=== PATIENT | male | born 1960 | race African-American/Black ===

== ENCOUNTER 2020-10-04 13:22 | Observation (INO) ==
[2020-10-04] MEDS ORDERED: ADENOSINE IV SOLN 3 MG/ML 2 ML VIAL IV STA (13:47)
[2020-10-04] MEDS ORDERED: SODIUM CHLORIDE 0.9% 1000ML 1,000 ML IV STA (13:47)
[2020-10-04] MEDS ORDERED: ASPIRIN CHEW 324 MG PO STA (13:47)
[2020-10-04] MEDS ORDERED: METOPROLOL TARTRATE 1 MG/ML VIAL IV ONE (13:51)
[2020-10-04] MEDS ORDERED: METOPROLOL TARTRATE 1 MG/ML VIAL IV STA (13:53)
[2020-10-04 13:58] LABS: Hematocrit (blood only) 48.8 % (42-52); Hemoglobin 16.1 g/dL (14.0-18.0); Mean Corpuscular Hemoglobin 28.7 pg (25-34); Mean Platelet Volume 10.2 fL (7.4-10.4); Platelet Count 217 K/uL (130-400); RDW Coefficient of Variation 14.2 % (11.5-14.5); RDW Standard Deviation 45.4 fL (36.4-46.3); Red Blood Count 5.61 M/uL (4.7-6.1)
[2020-10-04 14:03] LABS: Prothrombin Time 10.4 Seconds (9.0-12.0)
[2020-10-04 14:14] LABS: Albumin Level 3.8 gm/dl (3.4-5.0); BUN Creatinine Ratio 17.5 (10-20); Calcium 9.4 mg/dl (8.5-10.1); Creatinine Clr Calc Pharmacy 95.5 ml/min; Est GFR (African American) 88.2; Est GFR (Non-African American) 76.1; Potassium 3.7 mmol/L (3.5-5.1)
--- NOTE | 2020-10-04 14:14 | XRay Report ---
XR chest 1V portable HISTORY: 60 years-old Male Chest Pain acute atypical chest pain COMPARISON: CT abdomen 06/18/2007 TECHNIQUE: Portable AP view the chest FINDINGS: Cardiac silhouette is mildly enlarged. No pneumothorax, pleural effusion, airspace consolidation or o vert pulmonary edema. Mild left lung base opacities suggestive of atelectasis. Degenerative changes o f the shoulders and spine. IMPRESSION: No acute process. ACT 112: Negative or not required by law. The above report was generated using voice recognition software. It may contain grammatical, syntax o r spelling errors. Electronically signed by: Александр Peters M.D. 10/04/2020 2:12 PM
[2020-10-04 14:20] LABS: Albumin Globulin Ratio 0.8 (0.9-2); Bilirubin,Total 0.9 mg/dl (0.2-1); Globulin 4.5 gm/dl (2.5-4.0); Total Protein 8.3 gm/dl (6.4-8.2); Troponin I 0.368 ng/ml (0-0.045)
[2020-10-04] MEDS ORDERED: hydrALAZINE HCL 20 MG/ML VIAL IV STA (14:26)
[2020-10-04 14:51] LABS: Basophils # (auto) 0.01 K/uL (0-0.2); Basophils % (auto) 0.2 %; Eosinophils # (auto) 0.12 K/uL (0-0.5); Eosinophils % (auto) 2.3 %; Immature Granulocytes # (auto) 0.01 K/uL (0.00-0.02); Immature Granulocytes % (auto) 0.2 %; Lymphocytes # (auto) 2.65 K/uL (1.2-3.4); Monocytes # (auto) 0.39 K/uL (0.11-0.59); Monocytes % (auto) 7.4 %; Neutrophils # (auto) 2.12 K/uL (1.4-6.5); Neutrophils % (auto) 39.9 %
--- NOTE | 2020-10-04 15:09 | History & Physical Report ---
Date of Service October 04, 2020 Assessment & Plan (1) Paroxysmal SVT (supraventricular tachycardia): This is a 60yo M with a PMH of HTN, DM II, BPH and other medical problems listed below who presents with chest discomfort and was found to have paroxysmal SVT and uncontrolled blood pressure. Initial EKG with SVT at 160. Resolved with carotid massage. Associated chest discomfort resolved completely at this time Endorses a few similar episodes in the past 6 months that have resolved spon taneously Denies any history of known arrhythmias Continue to monitor on telemetry (2) Uncontrolled hypertension: BP 171/128 initially Given 5mg IV Lopressor, 10mg IV hydralazine, repeat BP now 162/112 History of elevated BP - patient sees Dr. Leon. Currently taking chlorthalidone 25mg and Losartan 50mg daily Discussed with Dr. Bernal, who recommends addition of 50mg Losartan and 1mg Terazosin now Routine cardiology consult for optimization of home BP meds, hypertensive heart disease (3) Troponin level elevated: Initial troponin level mildly elevated at 0.368 In setting of paroxysmal SVT that resolved spontaneously in ED with complete resolution of chest pain Initial EKG with SVT now resolved. Per chart review, history of symmetrical T- wave inversions in the inferior and lateral precordial leads CXR with no acute process Trend troponin, repeat EKG in AM, fasting lipid panel, TTE (4) Diabetes mellitus, type II: A1c 8.1 in Jul 2020 Hold home agents SSI while in-patient BSG AC HS (5) Hyperlipidemia: Has been hesitant to take statin in the past, per chart review DVT Ppx: SQ heparin Code status: FULL PCP: Raoul Dispo: Observation PCU. Plan to return home once medically stable. Patient seen in collaboration with Dr. Rodriguez. Please see addendum. History of Present Illness Primary Care Provider: Jordi Silveira MD This is a 60yo M with a PMH of HTN, DM II, BPH and other medical problems listed below who presents with chest discomfort. Was at work and had burning discomfort earlier and could not take in a full breath for 10 minutes. Rated severity as 7/10. Associated with diaphoresis. Left work and came to ED for further evaluation. Chest discomfort resolved completely after carotid massage. Had 2 similar episodes of heart palpitations over the past 6 months. During those episodes, symptoms lasted for 20-30 minutes and then resolved spontaneously. Non-exertional. Denies any tobacco use. No known history of CAD in family but both parents with HTN. Follows with Dr. Leon of [facility] cardi[facility]. Has been taking chlorthalidone and lopressor every morning. No fever or chills, lightheadedness, headache, palpitations, SOB, wheezing, nausea, vomiting, abdominal pain, dysuria, diarrhea or constipation. Has TTE from 2016 with preserved EF of 60%, preserved EF, LV wall thickness is severely increased (concentric) and proximal ascending thoracic aorta is borderline enlarged. Allergies Allergy/AdvReac Type Severity Reaction Status Date / Time Sulfa (Sulfonamide Allergy Unknown Unknown Verified 10/04/20 17:23 Antibiotics) metoprolol AdvReac erectile Verified 10/04/20 16:28 dysfunction nifedipine AdvReac airway Verified 10/04/20 16:27 edema Home Medications Medication Instructions Recorded Confirmed Type allopurinol 100 mg PO DAILY PRN 10/04/20 10/04/20 History aspirin [Aspirin Low Dose] 81 mg PO DAILY 10/04/20 10/04/20 History chlorthalidone 25 mg PO DAILY 10/04/20 10/04/20 History glyburide 5 mg PO BID 10/04/20 10/04/20 History losartan 50 mg PO DAILY 10/04/20 10/04/20 History Past Med/Surg History Medical History (Updated 10/04/20 @ 16:48 by Bel Bailey PA-C) Diabetes mellitus, type II History of blood in urine HTN (hypertension) Hyperlipidemia Obesity Surgical History History of eye removal Family History Father Hypertension Mother Hypertension Social History (Updated 10/04/20 @ 16:36 by Bel Bailey PA-C) Smoking Status: Never smoker Hx Alcohol Use: Yes Alcohol Intake Frequency: Monthly or Less Hx Substance Use: No Preferred Language: Mongolian marital status: Feels Safe at Home: Yes Review of Systems Review of Systems: At least ten systems reviewed and negative except as noted in the HPI. Physical Exam Physical Exam: Please see Dr. Rodriguez's addendum for physical exam. Results & Data Results & Data ([facility]) Vital Signs (Past 12 Hours) Vital Signs Temp Pulse Pulse Resp BP BP Pulse Ox 10/04/20 14:26 86 18 181/135 H 97 10/04/20 13:25 37.1 C 156 H 24 171/128 H 98 Laboratory Results Short CBC 10/04/20 Range/Units 13:42 WBC 5.30 (4.8-10.8) K/uL Hgb 16.1 (14.0-18.0) g/dL Hct 48.8 (42-52) % Plt Count 217 (130-400) K/uL BMP 10/04/20 13:42 Sodium 140 Potassium 3.7 Chloride 107 Carbon Dioxide 28 BUN 19 H Creatinine 1.07 Glucose 139 H Calcium 9.4 Cardiac Enzymes 10/04/20 Range/Units 13:42 Troponin I 0.368 H* (0-0.045) ng/ml Liver Function 10/04/20 Range/Units 13:42 Total Bilirubin 0.9 (0.2-1) mg/dl AST 76 H (15-37) U/L ALT 115 H (12-78) U/L Alkaline Phosphatase 75 (45-117) U/L Albumin 3.8 (3.4-5.0) gm/dl Diagnostic Findings Chest X-Ray 10/04/20 13:47 XR chest 1V portable HISTORY: 60 years-old Male Chest Pain acute atypical chest pain COMPARISON: CT abdomen 06/18/2007 TECHNIQUE: Portable AP view the chest FINDINGS: Cardiac silhouette is mildly enlarged. No pneumothorax, pleural effusion, airspace consolidation or overt pulmonary edema. Mild left lung base opacities suggestive of atelectasis. Degenerative changes of the shoulders and spine. IMPRESSION: No acute process. ACT 112: Negative or not required by law. The above report was generated using voice recognition software. It may contain grammatical, syntax or spelling errors. Electronically signed by: Александр Peters M.D. 10/04/2020 2:12 PM Supervising Physician Co-Signing Physician Notes Patient is a 60-year-old male with history of hypertension, diabetes mellitus, BPH and other medical problems presents with history of chest discomfort. He reports associated shortness of breath, diaphoresis and presents to ED for further evaluation. He had similar episodes in the past which spontaneously resolved as per patient. He follows with [facility] cardiology as outpatient. He admits to taking his medications for high blood pressure regularly. Please review HPI for complete reflux of presentation. He was found to have supraventricular tachycardia while in ED which resolved with carotid massage. Physical Exam: Vitals signs as noted above General Appearance:Obese, no apparent distress Head: normocephalic, Atraumatic Eyes: normal inspection, EOMI, Left eye--Artificial eye Neck: supple, Trachea midline Respiratory/Chest: Normal breath sounds, CTA Cardiovascular: S1, S2, No murmur Abdomen/GI:Soft, Non tender, Bowel sounds present Extremities/Musculoskeletal:normal inspection, no edema Neurologic/Psych:AAOX3, grossly no focal neurological deficits Skin: normal color, warm Supraventricular tachycardia Hypertensive urgency Minimal troponin elevation likely demand ischemia secondary to above We will increase losartan to 100 mg daily. Will add Terazosin as recommended by cardiology. Cardiology will be consulted. Will obtain resting echo check TSH. Monitor on telemetry Trend cardiac enzymes and repeat EKG in the morning. Continue chlorthalidone 25 mg daily. I personally reviewed the record. Patient is interviewed and examined at bedside. Patient's care is coordinated with Bel Bailey PA-C. Please refer to the documentation above for details of patient's presentation and for discussion of other issues.
[2020-10-04] MEDS ORDERED: LOSARTAN POTASSIUM 50 MG TAB PO STA (16:24)
[2020-10-04 16:52] LABS: Influenza A virus by PCR Negative (Neg); Influenza B virus by PCR Negative (Neg); RSV by PCR Negative (Neg); SARS CoV2 RNA(COVID-19) InHosp NEGATIVE (Negative)
[2020-10-04] MEDS ORDERED: TERAZOSIN HCL 1 MG CAP PO STA (17:22)
[2020-10-04] MEDS ORDERED: CARBOHYDRATES FOR HYPOGLYCEMIA PO PRN (20:04)
[2020-10-04] MEDS ORDERED: POLYETHYLENE (MIRALAX) 17 GM PACK PO PRN (20:04)
[2020-10-04] MEDS ORDERED: GLUCOSE 10 TABS/TUBE PO PRN (20:04)
[2020-10-04] MEDS ORDERED: GLUCOSE 40% GEL 15 GM TUBE PO PRN (20:04)
[2020-10-04] MEDS ORDERED: DEXTROSE 50% 50 ML SYRINGE IV PRN (20:04)
[2020-10-04] MEDS ORDERED: ONDANSETRON INJ 2 MG/ML 2 ML VIAL IV PRN (20:04)
[2020-10-04] MEDS ORDERED: LOSARTAN POTASSIUM 50 MG TAB PO SCH (20:04)
[2020-10-04] MEDS ORDERED: GLUCAGON FOR INJ 1 MG VIAL SQ PRN (20:04)
[2020-10-04 20:59] LABS: Thyroid Stimulating Hormone 1.54 uIu/ml (0.300-4.500); Troponin I 0.729 ng/ml (0-0.045)
[2020-10-04] MEDS: INSULIN ASPART 100 UNITS/ML 3 ML PEN SC SCH (21:10)
[2020-10-04] MEDS: ACETAMINOPHEN 325 MG TAB PO PRN (21:11)
[2020-10-04] MEDS: HEPARIN SOD 5,000 UNIT/0.5 ML VIAL SQ SCH (21:14)
--- NOTE | 2020-10-04 21:56 | Emergency Department Note ---
History of Present Illness General Chief complaint: Chest Pain Stated complaint: CHEST PAIN Time Seen by Provider: 10/04/20 13:45 Source: patient and RN notes reviewed Mode of arrival: ambulatory Limitations: no limitations History of Present Illness Provider complaint: Chest pain Maximum Pain Intensity: 6 This patient is a 60-year-old male who presents to the emergency department with complaints of substernal chest pressure that radiates to the left side. He does complain of some discomfort up into the neck. He notes this started around lunchtime today. He has had this happen on occasion previously but it does not lasted this long. He notes a history of diabetes and hypertension. Patient denies any history of heart problems, previous stress testing or catheterization. He denies any history of smoking. Patient denies any recent Covid exposures. Home Medications Medication Instructions Recorded Confirmed Type allopurinol 100 mg PO DAILY PRN 10/04/20 10/04/20 History aspirin [Aspirin Low Dose] 81 mg PO DAILY 10/04/20 10/04/20 History chlorthalidone 25 mg PO DAILY 10/04/20 10/04/20 History glyburide 5 mg PO BID 10/04/20 10/04/20 History losartan 50 mg PO DAILY 10/04/20 10/04/20 History Allergies Allergy/AdvReac Type Severity Reaction Status Date / Time Sulfa (Sulfonamide Allergy Unknown Unknown Verified 10/04/20 17:23 Antibiotics) metoprolol AdvReac erectile Verified 10/04/20 16:28 dysfunction nifedipine AdvReac airway Verified 10/04/20 16:27 edema Past Med/Surg History Medical History Diabetes mellitus, type II History of blood in urine HTN (hypertension) Hyperlipidemia Obesity Surgical History History of eye removal Family History Father Hypertension Mother Hypertension Social History Smoking Status: Never smoker Second Hand Exposure: No; Do You Dip or Chew Tobacco: No; Hx Alcohol Use: No Hx Substance Use: No Preferred Language: Bulgarian Communication Ability: Effective 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 and A total of 10 systems reviewed and were otherwise negative Physical Exam Vital Signs Vital Signs - 24 hr 10/04/20 13:25 10/04/20 13:47 10/04/20 13:50 Temperature 37.1 C Temperature Source Oral Pulse Rate 156 H 92 H 103 H Pulse Rate [Right Finger] Pulse Rate from SpO2 Sensor Pulse Rhythm Regular Regular Pulse Rhythm [Right Finger] Pulse Strength Normal Pulse Strength [Right Finger] Respiratory Rate 24 20 27 H Respiratory Effort / Characteristics Non-Labored Spontaneous Short of Breath Respiratory Depth Normal Shallow Respiratory Pattern Regular Blood Pressure 171/128 H Blood Pressure [Right Arm] Blood Pressure Mean 142 Blood Pressure Mean [Right Arm] Blood Pressure Position Sitting Blood Pressure Position [Right Arm] Pulse Oximetry 98 97 Oxygen Delivery Method Room Air Room Air Sepsis Recent Fever Within 48 Hours No Sepsis New/Unexplained Change in Mental Status No Sepsis Action Taken by Nursing No Action Required 10/04/20 13:56 10/04/20 14:00 10/04/20 14:10 Temperature Temperature Source Pulse Rate 95 H 85 69 Pulse Rate [Right Finger] Pulse Rate from SpO2 Sensor 83 Pulse Rhythm Pulse Rhythm [Right Finger] Pulse Strength Pulse Strength [Right Finger] Respiratory Rate Respiratory Effort / Characteristics Respiratory Depth Respiratory Pattern Blood Pressure 193/124 H Blood Pressure [Right Arm] Blood Pressure Mean 147 Blood Pressure Mean [Right Arm] Blood Pressure Position Blood Pressure Position [Right Arm] Pulse Oximetry 96 Oxygen Delivery Method Sepsis Recent Fever Within 48 Hours Sepsis New/Unexplained Change in Mental Status Sepsis Action Taken by Nursing 10/04/20 14:20 10/04/20 14:24 10/04/20 14:26 Temperature Temperature Source Pulse Rate 93 H 87 Pulse Rate [Right Finger] 86 Pulse Rate from SpO2 Sensor 87 Pulse Rhythm Pulse Rhythm [Right Finger] Regular Pulse Strength Pulse Strength [Right Finger] Normal Respiratory Rate 14 17 18 Respiratory Effort / Characteristics Non-Labored Spontaneous Respiratory Depth Normal Respiratory Pattern Regular Blood Pressure 181/135 H Blood Pressure [Right Arm] 181/135 H Blood Pressure Mean 150 Blood Pressure Mean [Right Arm] 150 Blood Pressure Position Blood Pressure Position [Right Arm] Lying Pulse Oximetry 98 97 Oxygen Delivery Method Room Air Sepsis Recent Fever Within 48 Hours Sepsis New/Unexplained Change in Mental Status Sepsis Action Taken by Nursing 10/04/20 14:30 10/04/20 14:31 10/04/20 14:40 Temperature Temperature Source Pulse Rate 84 83 83 Pulse Rate [Right Finger] Pulse Rate from SpO2 Sensor 83 82 83 Pulse Rhythm Pulse Rhythm [Right Finger] Pulse Strength Pulse Strength [Right Finger] Respiratory Rate 20 15 20 Respiratory Effort / Characteristics Respiratory Depth Respiratory Pattern Blood Pressure 171/117 H Blood Pressure [Right Arm] Blood Pressure Mean 135 Blood Pressure Mean [Right Arm] Blood Pressure Position Blood Pressure Position [Right Arm] Pulse Oximetry 97 97 97 Oxygen Delivery Method Sepsis Recent Fever Within 48 Hours Sepsis New/Unexplained Change in Mental Status Sepsis Action Taken by Nursing 10/04/20 14:45 10/04/20 14:59 10/04/20 15:00 Temperature Temperature Source Pulse Rate 91 H Pulse Rate [Right Finger] Pulse Rate from SpO2 Sensor Pulse Rhythm Pulse Rhythm [Right Finger] Pulse Strength Pulse Strength [Right Finger] Respiratory Rate 23 Respiratory Effort / Characteristics Respiratory Depth Respiratory Pattern Blood Pressure 187/130 H 183/130 H 185/126 H Blood Pressure [Right Arm] Blood Pressure Mean 149 147 145 Blood Pressure Mean [Right Arm] Blood Pressure Position Blood Pressure Position [Right Arm] Pulse Oximetry Oxygen Delivery Method Sepsis Recent Fever Within 48 Hours Sepsis New/Unexplained Change in Mental Status Sepsis Action Taken by Nursing 10/04/20 15:12 Temperature Temperature Source Pulse Rate Pulse Rate [Right Finger] Pulse Rate from SpO2 Sensor Pulse Rhythm Pulse Rhythm [Right Finger] Pulse Strength Pulse Strength [Right Finger] Respiratory Rate Respiratory Effort / Characteristics Respiratory Depth Respiratory Pattern Blood Pressure 190/133 H Blood Pressure [Right Arm] Blood Pressure Mean 152 Blood Pressure Mean [Right Arm] Blood Pressure Position Blood Pressure Position [Right Arm] Pulse Oximetry Oxygen Delivery Method Sepsis Recent Fever Within 48 Hours Sepsis New/Unexplained Change in Mental Status Sepsis Action Taken by Nursing Vital signs reviewed. General: Well-appearing 60 yo male, in no significant distress. HEENT: No scleral icterus, PERRLA, neck supple. Atraumatic. Cardiovascular: Tachycardic, regular, no extra sounds Pulmonary: Clear to auscultation bilaterally, normal work of breathing. Abdomen: Soft, obese, nontender, nondistended, positive bowel sounds. Musculoskeletal: Atraumatic, no peripheral edema. Neurologic: Patient awake alert and oriented x 3 Skin: Warm, dry, no rash Course Administered Medications Acetaminophen (Acetaminophen 325 Mg Tab) 650 mg PO Q4H PRN PRN Reason: Pain or Fever Stop: 11/03/20 20:03 Last Admin: 10/04/20 21:11 Dose: 650 mg Documented by: [id number] Heparin Sodium (Porcine) (Heparin Sod 5,000 Unit/0.5 Ml Vial) 5,000 units SQ Q8 ADRIANA Stop: 11/03/20 21:59 Last Admin: 10/04/20 21:14 Dose: 5,000 units Documented by: [id number] Discontinued Medications Adenosine (Adenosine Iv Soln 3 Mg/Ml 2 Ml Vial) 6 mg IV NOW STA Stop: 10/04/20 13:48 Last Admin: 10/04/20 19:20 Dose: Not Given Documented by: [id number] Aspirin (Aspirin Chew 324 Mg) 324 mg PO NOW STA Stop: 10/04/20 13:48 Last Admin: 10/04/20 15:22 Dose: 324 mg Documented by: [id number] Hydralazine HCl (Hydralazine Hcl 20 Mg/Ml Vial) 10 mg IV NOW STA Stop: 10/04/20 14:27 Last Admin: 10/04/20 15:22 Dose: 10 mg Documented by: [id number] Sodium Chloride (Nss 1000ml) 1,000 mls @ 999 mls/hr IV .Q1H1M STA Stop: 10/04/20 14:47 Last Infusion: 10/04/20 17:59 Dose: 0 mls/hr Documented by: [id number] Admin: 10/04/20 16:00 Dose: 999 mls/hr Documented by: [id number] Losartan Potassium (Losartan Potassium 50 Mg Tab) 50 mg PO ONE STA Stop: 10/04/20 16:25 Last Admin: 10/04/20 16:54 Dose: 50 mg Documented by: [id number] Metoprolol Tartrate (Metoprolol Tartrate 1 Mg/Ml Vial) Confirm Administered Dose 5 mg IV .STK-MED ONE Stop: 10/04/20 13:52 Last Admin: 10/04/20 14:14 Dose: 5 mg Documented by: [id number] Metoprolol Tartrate (Metoprolol Tartrate 1 Mg/Ml Vial) 5 mg IV NOW STA Stop: 10/04/20 13:54 Last Admin: 10/04/20 15:16 Dose: Not Given Documented by: [id number] Terazosin HCl (Terazosin Hcl 1 Mg Cap) 1 mg PO NOW STA Stop: 10/04/20 17:23 Last Admin: 10/04/20 17:58 Dose: 1 mg Documented by: [id number] Critical Care Time Critical Care Time: Yes Total Critical Care Time: 35 I have personally spent greater than 35 minutes of critical care time in the direct management of this patient. This includes bedside care, interpretation of diagnostic studies, and testing, discussion with consultants, patient, and family members, and other required patient management activities. This 35 minutes is in excess of all separately billable procedures. Medical Decision Making Differential Diagnosis Cardiac ischemia, aortic dissection, pulmonary embolism, pneumothorax, pneumonia, pericarditis, myocarditis, esophageal rupture, GERD, cholecystitis, pancreatitis, musculoskeletal, as well as other pathologies. Medical Records Attestation: I reviewed the patient's medical records. Home Medications Current Medication List: was personally reviewed by me Laboratory Data Attestation: I reviewed the patient's lab results. Result diagrams: 10/04/20 13:42 10/04/20 13:42 Lab Results 10/04/20 10/04/20 10/04/20 Range/Units 13:42 13:42 13:42 WBC 5.30 (4.8-10.8) K/uL RBC 5.61 (4.7-6.1) M/uL Hgb 16.1 (14.0-18.0) g/dL Hct 48.8 (42-52) % MCV 87.0 (80-100) fL MCH 28.7 (25-34) pg MCHC 33.0 (32-36) g/dL RDW Std Deviation 45.4 (36.4-46.3) fL RDW Coeff of Ricky 14.2 (11.5-14.5) % Plt Count 217 (130-400) K/uL MPV 10.2 (7.4-10.4) fL Immature Gran % (Auto) 0.2 % Neut % (Auto) 39.9 % Lymph % (Auto) 50.0 % [place] % (Auto) 7.4 % Eos % (Auto) 2.3 % Baso % (Auto) 0.2 % Neut # (Auto) 2.12 (1.4-6.5) K/uL Lymph # (Auto) 2.65 (1.2-3.4) K/uL [place] # (Auto) 0.39 (0.11-0.59) K/uL Eos # (Auto) 0.12 (0-0.5) K/uL Baso # (Auto) 0.01 (0-0.2) K/uL Immature Gran # (Auto) 0.01 (0.00-0.02) K/uL PT 10.4 (9.0-12.0) Seconds INR 1.0 (0.9-1.1) Sodium 140 (136-145) mmol/L Potassium 3.7 (3.5-5.1) mmol/L Chloride 107 (98-107) mmol/L Carbon Dioxide 28 (21-32) mmol/L Anion Gap 5.0 (3-11) BUN 19 H (7-18) mg/dl Creatinine 1.07 (0.6-1.4) mg/dl Est Cr Clr Drug Dosing 95.5 ml/min Est GFR ( Amer) 88.2 Est GFR (Non-Af Amer) 76.1 BUN/Creatinine Ratio 17.5 (10-20) Glucose 139 H (70-99) mg/dl Calcium 9.4 (8.5-10.1) mg/dl Total Bilirubin 0.9 (0.2-1) mg/dl AST 76 H (15-37) U/L ALT 115 H (12-78) U/L Alkaline Phosphatase 75 (45-117) U/L Troponin I 0.368 H* (0-0.045) ng/ml Total Protein 8.3 H (6.4-8.2) gm/dl Albumin 3.8 (3.4-5.0) gm/dl Globulin 4.5 H (2.5-4.0) gm/dl Albumin/Globulin Ratio 0.8 L (0.9-2) Lipase 152 (73-393) U/L Specimen Hemolysis Imaging Data Radiologist's Impression: Chest X-Ray 10/04/20 13:47 XR chest 1V portable HISTORY: 60 years-old Male Chest Pain acute atypical chest pain COMPARISON: CT abdomen 06/18/2007 TECHNIQUE: Portable AP view the chest FINDINGS: Cardiac silhouette is mildly enlarged. No pneumothorax, pleural effusion, airspace consolidation or overt pulmonary edema. Mild left lung base opacities suggestive of atelectasis. Degenerative changes of the shoulders and spine. IMPRESSION: No acute process. ACT 112: Negative or not required by law. The above report was generated using voice recognition software. It may contain grammatical, syntax or spelling errors. Electronically signed by: Александр Peters M.D. 10/04/2020 2:12 PM ECG Data Attestation: I personally reviewed and interpreted this ECG as follows: Indication: + chest pain Rate (beats per minute): 157 Rhythm: + SVT ECG Intervals/blocks: + Prolonged QT ECG [place]: + Normal ECG ST segments: + Nonspecific ST abnormalities and + repolarization abnormalities ECG Findings: + Q waves (Anterior); no PACs and no PVCs Additional Comments: EKG#2 reveals a sinus rhythm with a first-degree AV block at 85 bpm. Repolarization abnormality/T wave inversions noted in the lateral leads. Q waves noted in the anterior leads. When compared previous on the same day, sinus rhythm has replaced SVT Blood Pressure Blood Pressure Findings: Elevated blood pressure Blood Pressure Disposition: further management by hospitalist MDM Narrative This patient was evaluated and appeared to be in some discomfort. IV access was obtained and laboratory work was drawn. An order for cardiac monitoring was placed and the patient is noted to be in an SVT. Nursing staff was asked to obt ain IV adenosine and carotid massage was performed at the bedside by myself. SVT broke to a sinus rhythm with a first-degree AV block. Patient was given aspirin 324 mg p.o. and 5 mg of IV metoprolol to keep his rhythm stable and to help treat his markedly elevated blood pressure. Patient's laboratory work reveals a mildly elevated troponin of 0.368. Patient did require dose of IV hydralazine 10 mg for continued hypertension. This is likely a demand mediated process given the patient's recent SVT however given his chest pain, EKG changes, uncontrolled hypertension and elevated troponin, the hospitalist service was contacted for further management. The patient was made aware of the findings and plan and agrees. Impression & Plan Supraventricular tachycardia, Elevated troponin, Chest pain radiating to arm Discharge Plan Visit Data Chief Complaint: Chest Pain Stated Complaint: CHEST PAIN ED Provider: Camelia Royal Discharge Problem: Supraventricular tachycardia, Elevated troponin, Chest pain radiating to arm Patient Disposition: Admitted As Inpatient Discharge Instructions Interventions: ED Discharge Assessment Last Done: 10/04/20 19:36
[2020-10-05 02:24] LABS: Hematocrit (blood only) 44.9 % (42-52); Mean Corpuscular Hgb Conc 33.4 g/dL (32-36); Mean Corpuscular Volume 86.7 fL (80-100); Platelet Count 192 K/uL (130-400); RDW Standard Deviation 44.6 fL (36.4-46.3); Red Blood Count 5.18 M/uL (4.7-6.1); White Blood Count 7.29 K/uL (4.8-10.8)
[2020-10-05 02:42] LABS: BUN Creatinine Ratio 17.6 (10-20); Calcium 8.4 mg/dl (8.5-10.1); Creatinine Clr Calc Pharmacy 80.4 ml/min; Est GFR (African American) 72.4; Est GFR (Non-African American) 62.5; Magnesium 2.3 mg/dl (1.8-2.4); Potassium 3.3 mmol/L (3.5-5.1)
[2020-10-05] MEDS: HEPARIN SOD 5,000 UNIT/0.5 ML VIAL SQ SCH ×3 (05:23→21:19)
[2020-10-05] MEDS ORDERED: POTASSIUM CHLORIDE CRTAB 20 MEQ TABCR PO STA (06:30)
--- NOTE | 2020-10-05 06:59 | Electrocardiogram Report ---
Test Reason : Blood Pressure : / mmHG Vent. Rate : 157 BPM Atrial Rate : 157 BPM P-R Int : 114 ms QRS Dur : 090 ms QT Int : 302 ms P-R-T Axes : 080 074 252 degrees QTc Int : 488 ms Supraventricular tachycardia Abnormal ECG No previous ECGs available Confirmed by Travis Manuel ([id number]) on 10/05/2020 6:58:43 AM Referred By: REFERRED SELF Confirmed By:Travis Manuel
--- NOTE | 2020-10-05 07:03 | Electrocardiogram Report ---
Test Reason : Blood Pressure : / mmHG Vent. Rate : 085 BPM Atrial Rate : 085 BPM P-R Int : 226 ms QRS Dur : 092 ms QT Int : 388 ms P-R-T Axes : 062 044 197 degrees QTc Int : 461 ms Sinus rhythm with 1st degree A-V block Possible Left atrial enlargement Septal infarct , age undetermined T wave abnormality, consider inferolateral ischemia Abnormal ECG When compared with ECG of 04-OCT-2020 13:25, Sinus rhythm has replaced Supraventricular tachycardia Vent. rate has decreased BY 72 BPM Septal infarct is now Present T wave inversion less evident in Inferior leads Confirmed by Travis Manuel ([id number]) on 10/05/2020 7:03:31 AM Referred By: REFERRED SELF Confirmed By:Travis Manuel
[2020-10-05] MEDS: LOSARTAN POTASSIUM 50 MG TAB PO SCH (07:54)
[2020-10-05] MEDS: CHLORTHALIDONE 25 MG TAB PO SCH (07:55)
[2020-10-05] MEDS: ASPIRIN 81 MG ECTAB PO SCH (07:55)
[2020-10-05] MEDS: INSULIN ASPART 100 UNITS/ML 3 ML PEN SC SCH ×4 (07:56→21:20)
--- NOTE | 2020-10-05 08:33 | Hospitalist Progress Note ---
Date of Service October 05, 2020 Assessment & Plan (1) Paroxysmal SVT (supraventricular tachycardia): This is a 60yo M with a PMH of HTN, DM II, BPH and other medical problems listed below who presents with chest discomfort and was found to have paroxysmal SVT and uncontrolled blood pressure. Initial EKG with SVT at 160. Resolved with carotid massage. Associated chest discomfort resolved completely at this time EKG suspicious for Ischemia, repeat trops +Elevated trops Endorses a few similar episodes in the past 6 months that have resolved spontaneously Denies any history of known arrhythmias Continue to monitor on telemetry (2) Uncontrolled hypertension: BP 171/128 initially Given 5mg IV Lopressor, 10mg IV hydralazine, repeat BP now 162/112 History of elevated BP - patient sees Dr. Leon. Currently taking chlorthalidone 25mg and Losartan 50mg daily Discussed with Dr. Bernal, who recommends addition of 50mg Losartan and 1mg Terazosin now Routine cardiology consult for optimization of home BP meds, hypertensive heart disease (3) Troponin level elevated: Initial troponin level mildly elevated at 0.368 and higher today In setting of paroxysmal SVT that resolved spontaneously in ED with complete resolution of chest pain Initial EKG with SVT now resolved. Per chart review, history of symmetrical T- wave inversions in the inferior and lateral precordial leads CXR with no acute process Trend troponin, repeat EKG in AM, fasting lipid panel, TTE (4) Diabetes mellitus, type II: A1c 8.1 in Jul 2020 Hold home agents SSI while in-patient BSG AC HS (5) Hyperlipidemia: Has been hesitant to take statin in the past, per chart review DVT Ppx: SQ heparin Code status: FULL PCP: Raoul Dispo: Await cards input ROS-No Headache, No Visual Changes, No Nausea, No Vomiting, No Fever, No Chills, No Neck Pain or Stiffness, No Chest Pain, No Palpitations, No SOB, No DYSON, No Cough, No Sputum, No Wheezing, No Abdominal Pain, No Diarrhea, No Hematemesis, No Hemoptysis, No Unexpected Weight Loss, No Flank pain, No Melena, No Hematochezia, No Frequency, No Urgency, No Burning, No Hematuria, No Rashes, No Diaphoresis. Appetite is Normal Physical Exam Gen-AAO x 3, NAD, Afebrile, obese Head-NCAT, EOMI, PERRLA, Anicteric Sclera, No Posterior Pharyngeal Erythema Neck-Supple, No JVD, No Thyromegaly, No Masses, No LAD, No Bruits Lungs-Clear to Auscultation Bilaterally, No Rales, No Rhonchi, No Wheezing, No Crepitus Chest-No S4, +S1, +S2, No S3, No Murmurs, No Rubs, No Gallops, No Ectopy Abdomen-Soft, Bowel Sounds Present, Non Tender, Non Distended, No Hepatomegaly, No Splenomegaly, No Palpable Masses, No Rebound, No Rigidity, No Guarding Musculoskeletal-Full Range of Motion Bilaterally, No CVAT Extremities-No Cyanosis, No Clubbing, No Edema Nuero-Cranial Nerves II-XII grossly intact, Motor WNL, DTRs WNL, Strength WNL, Non Focal Psych-Normal Mood Admission and Anticipated Discharge Date Admission Date: October 04, 2020 Results & Data Results & Data ([facility]) Vital Signs (Past 12 Hours) Vital Signs Temp Pulse Pulse Resp BP Pulse Ox 10/05/20 07:36 36.3 C L 86 20 160/89 H 96 10/05/20 07:35 86 10/05/20 03:29 36.6 C 85 17 134/81 97 10/04/20 23:38 36.9 C 100 H 16 121/67 96 10/04/20 22:20 106 H
[2020-10-05] MEDS ORDERED: LOSARTAN POTASSIUM 50 MG TAB PO SCH ×2 (09:00)
--- NOTE | 2020-10-05 09:01 | Cardiology Consultation ---
Date of Consultation October 05, 2020 Assessment & Plan (1) Paroxysmal SVT (supraventricular tachycardia): SVT noted on EKG during emergency room visit- responded well and corrected with carotid massage. Has not had any further episodes to SVT since admission. Metoprolol in the past has caused erectile dysfunction and he developes air way edema on nifedipine. Will hold off on starting BB at this time. Patient is to follow up with cardiology as an out patient in about 2 weeks following dis charge. Patient has not been worked up for sleep apea. Given his history of uncontrolled hypertension and new onset PSVT will order a noctrual pulse ox study for this evening. Present on Admission?: Yes (2) Troponin level elevated: Likely due to increased cardiac demand in the setting on prolonged SVT. For completeness sake will have patient follow up and preform a stress test as an outpatient given the lack of symptoms at this time. Present on Admission?: Yes (3) Uncontrolled hypertension: Patient has a long standing history of difficult to control HTN dating back to 2000. At this time will add Sprionalactone given continued hypertension and low potassium of 3.3. Repeat BMP to be monitored by hospitalist in the AM . Can consider Proscar as an outpatient considering his history of BPH. Present on Admission?: Yes (4) Diabetes mellitus, type II: Will defer to hospitalist for management. Present on Admission?: Yes Supervising Physician Co-Signing Physician Notes Patient seen and examined with Vianney MURO. Agree with findings and assessment as above. Patient presented with complaints of chest pain and found to be in SVT with uncontrolled hypertension. SVT broke with carotid massage in the ER. No recurrences overnight. Chest discomfort resolved with mandaen of sinus rhythm as well. Believe troponin elevation is due to uncontrolled hypertension and SVT. Asymptomatic from cardiac standpoint this time so will defer stress testing to outpatient. We will make above medication changes for further blood pressure control. 2D echocardiogram does reveal severe concentric LVH and close cardiac follow-up for blood pressure control will be necessary. Continue to monitor overnight tonight. We will obtain nocturnal pulse ox as well. High likelihood of obstructive sleep apnea and will need sleep medicine follow-up upon discharge. History of Present Illness Reason for Consultation: Chest Pain, SVT, Hypertension [facility] Attending Physician: Abdulkadir Jordan DO History of Present Illness 60 year old male who presented to the ED with complaints of Chest pain. Found to be in SVT with uncontrolled HTN. Carotid massage resolved SVT and patient returned to SR. Chest discomfort also resolved at that time. Troponins were mildly elevated (0.0368, 0.729, 0.966, 0.991 today at 0840) . HTN was initally 171/128- 5mg of Lopressor was given along with 10 mg of hydralazine, BP lowered to 162/112. Patient follows with Dr. Leon outpatient and was already on 25 mg of chlorthalidone and 50 mg of Losartan. Last evening Terazosin 1mg was added and losartan was increased to 100 mg daily. Today the patient was laying supine in bed at time of encounter. No acute distress noted. States that since his heart has returned to SR he has not had any further episodes of chest discomfort. 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 Does not believe that he is staying well hydrated throughout the day. Notes that BP has been extremely difficult to control since he came over some [facility] [place], [place] in 2000. BP today prior to medications 160/89. Potassium low at 3.3. Patient is asymptomatic. Tele monitor reviewed: patient has been SR in the 80-90s. No chest pain, shortness of breath, palpitations, dizziness, syncope or near syncope. No orthopnea, PND, or increased lower extremity edema. No fever, chills, cough, hematochezia, melena, or hemoptysis Past medical history: Hypertension Hypertensive heart disease DM II BPH Allergies Allergy/AdvReac Type Severity Reaction Status Date / Time Sulfa (Sulfonamide Allergy Unknown Unknown Verified 10/04/20 17:23 Antibiotics) metoprolol AdvReac erectile Verified 10/04/20 16:28 dysfunction nifedipine AdvReac airway Verified 10/04/20 16:27 edema Home Medications Medication Instructions Recorded Confirmed Type allopurinol 100 mg PO DAILY PRN 10/04/20 10/04/20 History aspirin [Aspirin Low Dose] 81 mg PO DAILY 10/04/20 10/04/20 History chlorthalidone 25 mg PO DAILY 10/04/20 10/04/20 History glyburide 5 mg PO BID 10/04/20 10/04/20 History losartan 50 mg PO DAILY 10/04/20 10/04/20 History Patient History Medical History Diabetes mellitus, type II History of blood in urine HTN (hypertension) Hyperlipidemia Obesity Surgical History History of eye removal Family History Father Hypertension Mother Hypertension Social History Smoking Status: Never smoker Second Hand Exposure: No; Do You Dip or Chew Tobacco: No; Hx Alcohol Use: No Hx Substance Use: No Preferred Language: Telugu Communication Ability: Effective Account Manager Required: No Beliefs That Will Affect Care: None marital status: Current Living Situation: Spouse Other Information That Helps Us Care for You: No Feels Safe at Home: Yes Safety Concerns: Feels Safe At This Time Assistive Devices: None Review of Systems Review of Systems: All systems reviewed & are unremarkable except as noted in HPI & below Physical Exam Physical Exam: General: No acute distress. A+Ox3. HEENT: Normocephalic. Atraumatic. PERRL. EOMI. Conjunctiva and sclera clear. NECK: No carotid bruits. No JVD. Carotid upstrokes are brisk. Heart: RRR. S1 and S2 noted without murmur, rubs, gallops. PMI non displaced. Lungs: Clear to auscultation. No wheezes, rhonchi, rales. Abdomen: Normal bowel sounds. Soft. Nontender. No masses or organomegaly. No abdominal bruits. Extremities: No edema. No clubbing or cyanosis. Pulses: radial=2/4, posterior tibial=2/4, dorsalis pedis = 2/4. NEURO: No focal deficits. PSYCH: Normal. Results & Data ([facility]) Vital Signs (Past 12 Hours) Vital Signs Temp Pulse Pulse Resp BP Pulse Ox 10/05/20 07:36 36.3 C L 86 20 160/89 H 96 10/05/20 07:35 86 10/05/20 03:29 36.6 C 85 17 134/81 97 10/04/20 23:38 36.9 C 100 H 16 121/67 96 10/04/20 22:20 106 H Laboratory Results 10/05/20 10/05/20 10/05/20 Range/Units 08:41 07:26 02:07 WBC (4.8-10.8) K/uL RBC (4.7-6.1) M/uL Hgb (14.0-18.0) g/dL Hct (42-52) % MCV (80-100) fL MCH (25-34) pg MCHC (32-36) g/dL RDW Std Deviation (36.4-46.3) fL RDW Coeff of Ricky (11.5-14.5) % Plt Count (130-400) K/uL MPV (7.4-10.4) fL Immature Gran % (Auto) % Neut % (Auto) % Lymph % (Auto) % [place] % (Auto) % Eos % (Auto) % Baso % (Auto) % Neut # (Auto) (1.4-6.5) K/uL Lymph # (Auto) (1.2-3.4) K/uL [place] # (Auto) (0.11-0.59) K/uL Eos # (Auto) (0-0.5) K/uL Baso # (Auto) (0-0.2) K/uL Immature Gran # (Auto) (0.00-0.02) K/uL PT (9.0-12.0) Seconds INR (0.9-1.1) Sodium 141 (136-145) mmol/L Potassium 3.3 L (3.5-5.1) mmol/L Chloride 110 H (98-107) mmol/L Carbon Dioxide 28 (21-32) mmol/L Anion Gap 3.0 (3-11) BUN 22 H (7-18) mg/dl Creatinine 1.26 (0.6-1.4) mg/dl Est Cr Clr Drug Dosing 80.4 ml/min Est GFR ( Amer) 72.4 Est GFR (Non-Af Amer) 62.5 BUN/Creatinine Ratio 17.6 (10-20) Glucose 125 H (70-99) mg/dl POC Glucose 143 H (70-99) mg/dl Calcium 8.4 L (8.5-10.1) mg/dl Magnesium 2.3 (1.8-2.4) mg/dl Total Bilirubin (0.2-1) mg/dl AST (15-37) U/L ALT (12-78) U/L Alkaline Phosphatase (45-117) U/L Troponin I Pending (0-0.045) ng/ml Total Protein (6.4-8.2) gm/dl Albumin (3.4-5.0) gm/dl Globulin (2.5-4.0) gm/dl Albumin/Globulin Ratio (0.9-2) Triglycerides 102 (0-150) mg/dl Cholesterol 149 (0-200) mg/dl LDL Cholesterol, Calc 94 mg/dl VLDL Cholesterol, Calc 20 mg/dl HDL Cholesterol 35 mg/dl Cholesterol/HDL Ratio 4 Lipase (73-393) U/L TSH (0.300-4.500) uIu/ml Specimen Hemolysis COVID-19 Eval Order SARS-CoV-2 (PCR) (Negative) Influenza Type A (PCR) (Neg) Influenza Type B (PCR) (Neg) RSV (RT-PCR) (Neg) 10/05/20 10/05/20 10/04/20 Range/Units 02:07 02:07 21:10 WBC 7.29 (4.8-10.8) K/uL RBC 5.18 (4.7-6.1) M/uL Hgb 15.0 (14.0-18.0) g/dL Hct 44.9 (42-52) % MCV 86.7 (80-100) fL MCH 29.0 (25-34) pg MCHC 33.4 (32-36) g/dL RDW Std Deviation 44.6 (36.4-46.3) fL RDW Coeff of Ricky 14.0 (11.5-14.5) % Plt Count 192 (130-400) K/uL MPV 10.0 (7.4-10.4) fL Immature Gran % (Auto) % Neut % (Auto) % Lymph % (Auto) % [place] % (Auto) % Eos % (Auto) % Baso % (Auto) % Neut # (Auto) (1.4-6.5) K/uL Lymph # (Auto) (1.2-3.4) K/uL [place] # (Auto) (0.11-0.59) K/uL Eos # (Auto) (0-0.5) K/uL Baso # (Auto) (0-0.2) K/uL Immature Gran # (Auto) (0.00-0.02) K/uL PT (9.0-12.0) Seconds INR (0.9-1.1) Sodium (136-145) mmol/L Potassium (3.5-5.1) mmol/L Chloride (98-107) mmol/L Carbon Dioxide (21-32) mmol/L Anion Gap (3-11) BUN (7-18) mg/dl Creatinine (0.6-1.4) mg/dl Est Cr Clr Drug Dosing ml/min Est GFR ( Amer) Est GFR (Non-Af Amer) BUN/Creatinine Ratio (10-20) Glucose (70-99) mg/dl POC Glucose 89 (70-99) mg/dl Calcium (8.5-10.1) mg/dl Magnesium (1.8-2.4) mg/dl Total Bilirubin (0.2-1) mg/dl AST (15-37) U/L ALT (12-78) U/L Alkaline Phosphatase (45-117) U/L Troponin I 0.966 H* (0-0.045) ng/ml Total Protein (6.4-8.2) gm/dl Albumin (3.4-5.0) gm/dl Globulin (2.5-4.0) gm/dl Albumin/Globulin Ratio (0.9-2) Triglycerides (0-150) mg/dl Cholesterol (0-200) mg/dl LDL Cholesterol, Calc mg/dl VLDL Cholesterol, Calc mg/dl HDL Cholesterol mg/dl Cholesterol/HDL Ratio Lipase (73-393) U/L TSH (0.300-4.500) uIu/ml Specimen Hemolysis COVID-19 Eval Order SARS-CoV-2 (PCR) (Negative) Influenza Type A (PCR) (Neg) Influenza Type B (PCR) (Neg) RSV (RT-PCR) (Neg) 10/04/20 10/04/20 10/04/20 Range/Units 20:20 16:05 16:05 WBC (4.8-10.8) K/uL RBC (4.7-6.1) M/uL Hgb (14.0-18.0) g/dL Hct (42-52) % MCV (80-100) fL MCH (25-34) pg MCHC (32-36) g/dL RDW Std Deviation (36.4-46.3) fL RDW Coeff of Ricky (11.5-14.5) % Plt Count (130-400) K/uL MPV (7.4-10.4) fL Immature Gran % (Auto) % Neut % (Auto) % Lymph % (Auto) % [place] % (Auto) % Eos % (Auto) % Baso % (Auto) % Neut # (Auto) (1.4-6.5) K/uL Lymph # (Auto) (1.2-3.4) K/uL [place] # (Auto) (0.11-0.59) K/uL Eos # (Auto) (0-0.5) K/uL Baso # (Auto) (0-0.2) K/uL Immature Gran # (Auto) (0.00-0.02) K/uL PT (9.0-12.0) Seconds INR (0.9-1.1) Sodium (136-145) mmol/L Potassium (3.5-5.1) mmol/L Chloride (98-107) mmol/L Carbon Dioxide (21-32) mmol/L Anion Gap (3-11) BUN (7-18) mg/dl Creatinine (0.6-1.4) mg/dl Est Cr Clr Drug Dosing ml/min Est GFR ( Amer) Est GFR (Non-Af Amer) BUN/Creatinine Ratio (10-20) Glucose (70-99) mg/dl POC Glucose (70-99) mg/dl Calcium (8.5-10.1) mg/dl Magnesium (1.8-2.4) mg/dl Total Bilirubin (0.2-1) mg/dl AST (15-37) U/L ALT (12-78) U/L Alkaline Phosphatase (45-117) U/L Troponin I 0.729 H* (0-0.045) ng/ml Total Protein (6.4-8.2) gm/dl Albumin (3.4-5.0) gm/dl Globulin (2.5-4.0) gm/dl Albumin/Globulin Ratio (0.9-2) Triglycerides (0-150) mg/dl Cholesterol (0-200) mg/dl LDL Cholesterol, Calc mg/dl VLDL Cholesterol, Calc mg/dl HDL Cholesterol mg/dl Cholesterol/HDL Ratio Lipase (73-393) U/L TSH 1.540 (0.300-4.500) uIu/ml Specimen Hemolysis COVID-19 Eval Order CovFluRsv at [facility] SARS-CoV-2 (PCR) NEGATIVE (Negative) Influenza Type A (PCR) Negative (Neg) Influenza Type B (PCR) Negative (Neg) RSV (RT-PCR) Negative (Neg) 10/04/20 10/04/20 10/04/20 Range/Units 13:42 13:42 13:42 WBC 5.30 (4.8-10.8) K/uL RBC 5.61 (4.7-6.1) M/uL Hgb 16.1 (14.0-18.0) g/dL Hct 48.8 (42-52) % MCV 87.0 (80-100) fL MCH 28.7 (25-34) pg MCHC 33.0 (32-36) g/dL RDW Std Deviation 45.4 (36.4-46.3) fL RDW Coeff of Ricky 14.2 (11.5-14.5) % Plt Count 217 (130-400) K/uL MPV 10.2 (7.4-10.4) fL Immature Gran % (Auto) 0.2 % Neut % (Auto) 39.9 % Lymph % (Auto) 50.0 % [place] % (Auto) 7.4 % Eos % (Auto) 2.3 % Baso % (Auto) 0.2 % Neut # (Auto) 2.12 (1.4-6.5) K/uL Lymph # (Auto) 2.65 (1.2-3.4) K/uL [place] # (Auto) 0.39 (0.11-0.59) K/uL Eos # (Auto) 0.12 (0-0.5) K/uL Baso # (Auto) 0.01 (0-0.2) K/uL Immature Gran # (Auto) 0.01 (0.00-0.02) K/uL PT 10.4 (9.0-12.0) Seconds INR 1.0 (0.9-1.1) Sodium 140 (136-145) mmol/L Potassium 3.7 (3.5-5.1) mmol/L Chloride 107 (98-107) mmol/L Carbon Dioxide 28 (21-32) mmol/L Anion Gap 5.0 (3-11) BUN 19 H (7-18) mg/dl Creatinine 1.07 (0.6-1.4) mg/dl Est Cr Clr Drug Dosing 95.5 ml/min Est GFR ( Amer) 88.2 Est GFR (Non-Af Amer) 76.1 BUN/Creatinine Ratio 17.5 (10-20) Glucose 139 H (70-99) mg/dl POC Glucose (70-99) mg/dl Calcium 9.4 (8.5-10.1) mg/dl Magnesium (1.8-2.4) mg/dl Total Bilirubin 0.9 (0.2-1) mg/dl AST 76 H (15-37) U/L ALT 115 H (12-78) U/L Alkaline Phosphatase 75 (45-117) U/L Troponin I 0.368 H* (0-0.045) ng/ml Total Protein 8.3 H (6.4-8.2) gm/dl Albumin 3.8 (3.4-5.0) gm/dl Globulin 4.5 H (2.5-4.0) gm/dl Albumin/Globulin Ratio 0.8 L (0.9-2) Triglycerides (0-150) mg/dl Cholesterol (0-200) mg/dl LDL Cholesterol, Calc mg/dl VLDL Cholesterol, Calc mg/dl HDL Cholesterol mg/dl Cholesterol/HDL Ratio Lipase 152 (73-393) U/L TSH (0.300-4.500) uIu/ml Specimen Hemolysis COVID-19 Eval Order SARS-CoV-2 (PCR) (Negative) Influenza Type A (PCR) (Neg) Influenza Type B (PCR) (Neg) RSV (RT-PCR) (Neg)
[2020-10-05] MEDS: SPIRONOLACTONE 12.5 MG TAB PO SCH (12:30)
--- NOTE | 2020-10-05 13:28 | Electrocardiogram Report ---
Test Reason : Blood Pressure : / mmHG Vent. Rate : 093 BPM Atrial Rate : 093 BPM P-R Int : 224 ms QRS Dur : 086 ms QT Int : 382 ms P-R-T Axes : 076 079 -78 degrees QTc Int : 474 ms Sinus rhythm with 1st degree A-V block Septal infarct (cited on or before 04-OCT-2020) Abnormal ECG When compared with ECG of 04-OCT-2020 14:55, No significant change Confirmed by Alonso Meza ([id number]) on 10/05/2020 1:28:10 PM Referred By: REFERRED SELF Confirmed By:Alonso Meza
[2020-10-05] MEDS: ACETAMINOPHEN 325 MG TAB PO PRN (15:39)
[2020-10-06] MEDS: HEPARIN SOD 5,000 UNIT/0.5 ML VIAL SQ SCH (06:40)
[2020-10-06 06:43] LABS: Hematocrit (blood only) 48.1 % (42-52); Hemoglobin 16.1 g/dL (14.0-18.0); Mean Corpuscular Hgb Conc 33.5 g/dL (32-36); Mean Corpuscular Volume 86.7 fL (80-100); Mean Platelet Volume 10.2 fL (7.4-10.4); Platelet Count 190 K/uL (130-400); RDW Standard Deviation 44.4 fL (36.4-46.3); Red Blood Count 5.55 M/uL (4.7-6.1); White Blood Count 5.85 K/uL (4.8-10.8)
[2020-10-06 07:01] LABS: BUN Creatinine Ratio 20.3 (10-20); Calcium 9.1 mg/dl (8.5-10.1); Creatinine Clr Calc Pharmacy 101.1 ml/min; Est GFR (African American) 95.7; Est GFR (Non-African American) 82.6; Potassium 3.6 mmol/L (3.5-5.1)
[2020-10-06] MEDS: ASPIRIN 81 MG ECTAB PO SCH (08:13)
[2020-10-06] MEDS: LOSARTAN POTASSIUM 50 MG TAB PO SCH (08:13)
[2020-10-06] MEDS: CHLORTHALIDONE 25 MG TAB PO SCH (08:13)
[2020-10-06] MEDS: SPIRONOLACTONE 12.5 MG TAB PO SCH (08:13)
[2020-10-06] MEDS: INSULIN ASPART 100 UNITS/ML 3 ML PEN SC SCH (08:14)
--- NOTE | 2020-10-06 08:52 | Discharge Summary ---
Date of Service October 06, 2020 Admission HPI Per Admitting Provider This is a 60yo M with a PMH of HTN, DM II, BPH and other medical problems listed below who presents with chest discomfort. Was at work and had burning discomfort earlier and could not take in a full breath for 10 minutes. Rated severity as 7/10. Associated with diaphoresis. Left work and came to ED for further evaluation. Chest discomfort resolved completely after carotid massage. Had 2 similar episodes of heart palpitations over the past 6 months. During those episodes, symptoms lasted for 20-30 minutes and then resolved spontaneously. Non-exertional. Denies any tobacco use. No known history of CAD in family but b oth parents with HTN. Follows with Dr. Leon of [facility]. Has been taking chlorthalidone and lopressor every morning. No fever or chills, lightheadedness, headache, palpitations, SOB, wheezing, nausea, vomiting, abdominal pain, dysuria, diarrhea or constipation. Has TTE from 2016 with preserved EF of 60%, preserved EF, LV wall thickness is severely increased (concentric) and proximal ascending thoracic aorta is borderline enlarged. Admission Exam Per Admitting Provider General Appearance:Obese, no apparent distress Head: normocephalic, Atraumatic Eyes: normal inspection, EOMI, Left eye--Artificial eye Neck: supple, Trachea midline Respiratory/Chest: Normal breath sounds, CTA Cardiovascular: S1, S2, No murmur Abdomen/GI:Soft, Non tender, Bowel sounds present Extremities/Musculoskeletal:normal inspection, no edema Neurologic/Psych:AAOX3, grossly no focal neurological deficits Skin: normal color, warm Principal Diagnosis (1) Paroxysmal SVT (supraventricular tachycardia): (2) Uncontrolled hypertension: (3) Troponin level elevated: (4) Diabetes mellitus, type II: (5) Hyperlipidemia: (6) CARLOS ALBERTO (7) Obesity BMI 45 (8) Hypokalemia Discharge Exam See Below Discharge Data Allergies Allergy/AdvReac Type Severity Reaction Status Date / Time Sulfa (Sulfonamide Allergy Unknown Unknown Verified 10/04/20 17:23 Antibiotics) metoprolol AdvReac erectile Verified 10/04/20 16:28 dysfunction nifedipine AdvReac airway Verified 10/04/20 16:27 edema Consultations 10/04/20 14:42 ED Decision to Admit Stat 10/04/20 15:14 Consult Cardiology Routine Current Diagnoses Type 2 diabetes mellitus without complications (10/04/20) Hyperlipidemia, unspecified (10/04/20) Essential (primary) hypertension (10/04/20) Supraventricular tachycardia (10/04/20) Other specified abnormalities of plasma proteins (10/04/20) Allergies Sulfa (Sulfonamide Antibiotics) Allergy (Unknown, Verified 10/04/20 17:23) Unknown metoprolol Adverse Reaction (Verified 10/04/20 16:28) erectile dysfunction nifedipine Adverse Reaction (Verified 10/04/20 16:27) airway edema Height/Weight/Isolation Height 5 ft 6 in Weight 126.2 kg Chemistry 10/04/20 10/05/20 10/06/20 13:42 02:07 05:58 Sodium 140 141 138 Potassium 3.7 3.3 L 3.6 Chloride 107 110 H 106 Carbon Dioxide 28 28 27 Anion Gap 5.0 3.0 5.0 BUN 19 H 22 H 20 H Creatinine 1.07 1.26 1.00 Glucose 139 H 125 H 114 H Hospital Course (1) Paroxysmal SVT (supraventricular tachycardia): This is a 60yo M with a PMH of HTN, DM II, BPH and other medical problems listed below who presents with chest discomfort and was found to have paroxysmal SVT and uncontrolled blood pressure. Initial EKG with SVT at 160. Resolved with carotid massage. Associated chest discomfort resolved completely at this time EKG suspicious for Ischemia, repeat trops +Elevated trops Endorses a few similar episodes in the past 6 months that have resolved spontaneously Denies any history of known arrhythmias (2) Uncontrolled hypertension: BP 171/128 initially Given 5mg IV Lopressor, 10mg IV hydralazine, repeat BP now 162/112 History of elevated BP - patient sees Dr. Leon. BP meds adjusted (3) Troponin level elevated: Initial troponin level mildly elevated at 0.368 and higher today In setting of paroxysmal SVT that resolved spontaneously in ED with complete resolution of chest pain Initial EKG with SVT now resolved. Per chart review, history of symmetrical T- wave inversions in the inferior and lateral precordial leads CXR with no acute process (4) Diabetes mellitus, type II: A1c 8.1 in Jul 2020 Hold home agents SSI while in-patient BSG AC HS (5) Hyperlipidemia: Has been hesitant to take statin in the past, per chart review, DC today on HCTZ and Losartan, Sleep study at [facility], Failed ON Pulse Ox DC Home f/u for BP c Dr Carolyn RIVAS-No Headache, No Visual Changes, No Nausea, No Vomiting, No Fever, No Chills, No Neck Pain or Stiffness, No Chest Pain, No Palpitations, No SOB, No DYSON, No Cough, No Sputum, No Wheezing, No Abdominal Pain, No Diarrhea, No Hematemesis, No Hemoptysis, No Unexpected Weight Loss, No Flank pain, No Melena, No Hematochezia, No Frequency, No Urgency, No Burning, No Hematuria, No Rashes, No Diaphoresis. Appetite is Normal Physical Exam Gen-AAO x 3, NAD, Afebrile, obese Head-NCAT, EOMI, PERRLA, Anicteric Sclera, No Posterior Pharyngeal Erythema Neck-Supple, No JVD, No Thyromegaly, No Masses, No LAD, No Bruits Lungs-Clear to Auscultation Bilaterally, No Rales, No Rhonchi, No Wheezing, No Crepitus Chest-No S4, +S1, +S2, No S3, No Murmurs, No Rubs, No Gallops, No Ectopy Abdomen-Soft, Bowel Sounds Present, Non Tender, Non Distended, No Hepatomegaly, No Splenomegaly, No Palpable Masses, No Rebound, No Rigidity, No Guarding Musculoskeletal-Full Range of Motion Bilaterally, No CVAT Extremities-No Cyanosis, No Clubbing, No Edema Nuero-Cranial Nerves II-XII grossly intact, Motor WNL, DTRs WNL, Strength WNL, Non Focal Psych-Normal Mood Total Time Total Time Spent Total Time Spent (In Minutes): 45 mins Total Time Includes: Examination of the Patient, Discharge Planning, Medication Reconciliation and Communication With Other Providers Discharge Plan Discharge Items Patient Disposition: Home - Self-Care Reason For Visit: CHEST PAIN Discharge Diagnosis: (1) Paroxysmal SVT (supraventricular tachycardia): (2) Uncontrolled hypertension: (3) Troponin level elevated: (4) Diabetes mellitus, type II: (5) Hyperlipidemia: (6) CARLOS ALBERTO (7) Obesity BMI 45 (8) Hypokalemia Condition on Discharge: Good Health Concerns: Sleep Apnea Activity: Resume your previous activity Lifting: Gradually increase as tolerated Bathing: No limitations Sexual Activity: When tolerated Exercise/Sports: Gradually increase as tolerated Driving/Machine Use: No limitations Weightbearing: Full weightbearing Non-emergency contact: Primary Care Provider, Nipple Maker and B Operator Call non-emergency contact if: you have any medication questions Follow-up/Referrals: Luis Leon, [Nipple Maker] - (2-3 weeks) Jordi Silveira MD [Primary Care Provider] - Diet: Carb Consistent or DM2 and Heart Healthy Addtl Attending Provider Instructions: Call Dr Silveira to arrange a Sleep Study for you, tell him you Oxygen Saturations dropped during sleep Monitor your Blood Pressure at home and call PCP if too high Pending Studies at Discharge: No Stand-Alone Forms: My Outline App, Smoking Cessation Medications and DC Order Prescriptions: New losartan 50 mg Tablet 100 mg PO QAM Qty: 60 RF: 0 hydrochlorothiazide 25 mg Tablet 25 mg PO QAM Qty: 30 RF: 0 Continued glyburide 5 mg tablet 5 mg PO BID RF: 0 aspirin [Aspirin Low Dose] 81 mg Tablet,Delayed Release (Dr/Ec) 81 mg PO DAILY RF: 0 allopurinol 100 mg Tablet 100 mg PO DAILY PRN (Reason: gout) RF: 0 Discontinued losartan 50 mg tablet 50 mg PO DAILY RF: 0 chlorthalidone 25 mg tablet 25 mg PO DAILY RF: 0 Discharge Orders: Discharge Order (Routine); Ordered 10/06/20 Ordered By: Abdulkadir Jordan Admission Data Admit Date/Time: 10/04/20 15:14 Attending Provider: Abdulkadir Jordan Admit Provider: Raheem Rodriguez Primary Care Provider: Jordi Silveira Other Providers: Daniel Bernal ; Raheem Rodriguez
[2020-10-06] MEDS ORDERED: hydroCHLOROthiazide 25 MG TAB PO SCH (09:00)
--- NOTE | 2020-10-06 09:44 | Cardiology Progress Note ---
Date of Service October 06, 2020 Assessment & Plan (1) Paroxysmal SVT (supraventricular tachycardia): Patient's rhythm has been stable on telemetry. Sleep apnea is most likely contributing to his arrhythmias. (2) Troponin level elevated: Likely due to increased cardiac demand in the setting on prolonged SVT. For completeness sake will have patient follow up and preform a stress test as an outpatient given the lack of symptoms at this time. (3) Uncontrolled hypertension: The patient has sleep apnea and will require a sleep evaluation after discharge. He may qualify for home oxygen at night until he is seen by sleep. This should improve his hypertension after it is treated. He will also need continued follow-up through his PCP our clinic to monitor his blood pressure. (4) Diabetes mellitus, type II: Will defer to hospitalist for management. Admission and Anticipated Discharge Date Admission Date: October 04, 2020 Subjective The patient had an uneventful night. No new complaints. Review of Systems Review of Systems: All systems reviewed & are unremarkable except as noted in HPI & below Nothing additional to add. Physical Exam Physical Exam: General: no acute distress and stated age Head: normocephalic, no masses, lesions, tenderness or abnormalities Eyes: conjunctiva are pink and non-injected, sclera clear Neck: supple, no adenopathy, no bruits, normal jugular venous pulse, no hepatojugular reflux Chest: normal shape and normal respiratory effort Lungs: clear to auscultation and percussion Cardiac Exam: - regular rate & rhythm, no murmurs gallops or rubs - normal S1, normal S2 Pulses: 2(+) throughout Abdomen: abdomen soft, non-tender, no abnormal masses and no hepatosplenomegaly Musculoskeletal: no gait disturbance, no joint inflammation, no deforming arthritis Extremities: no edema and no cyanosis Neuro: grossly normal exam Results & Data ([facility]) Vital Signs (Past 12 Hours) Vital Signs Temp Pulse Pulse Pulse Resp BP BP 10/06/20 08:00 75 10/06/20 07:19 36.8 C 86 22 152/101 H 10/06/20 03:34 36.5 C 89 18 172/115 H 10/06/20 03:10 105 H 10/05/20 23:40 90 10/05/20 23:16 36.8 C 95 H 20 133/80 Pulse Ox Pulse Ox 10/06/20 08:00 10/06/20 07:19 96 10/06/20 03:34 97 10/06/20 03:10 98 10/05/20 23:40 92 10/05/20 23:16 95 Laboratory Results Laboratory Results - last 24 hr 10/05/20 10/05/20 10/05/20 12:17 14:21 16:26 WBC RBC Hgb Hct MCV MCH MCHC RDW Std Deviation RDW Coeff of Ricky Plt Count MPV Sodium Potassium Chloride Carbon Dioxide Anion Gap BUN Creatinine Est Cr Clr Drug Dosing Est GFR ( Amer) Est GFR (Non-Af Amer) BUN/Creatinine Ratio Glucose POC Glucose 92 95 Calcium Troponin I 1.080 H* 10/05/20 10/05/20 10/06/20 20:17 20:45 05:58 WBC 5.85 RBC 5.55 Hgb 16.1 Hct 48.1 MCV 86.7 MCH 29.0 MCHC 33.5 RDW Std Deviation 44.4 RDW Coeff of Ricky 14.0 Plt Count 190 MPV 10.2 Sodium Potassium Chloride Carbon Dioxide Anion Gap BUN Creatinine Est Cr Clr Drug Dosing Est GFR ( Amer) Est GFR (Non-Af Amer) BUN/Creatinine Ratio Glucose POC Glucose 82 Calcium Troponin I 1.010 H* 10/06/20 10/06/20 05:58 07:18 WBC RBC Hgb Hct MCV MCH MCHC RDW Std Deviation RDW Coeff of Ricky Plt Count MPV Sodium 138 Potassium 3.6 Chloride 106 Carbon Dioxide 27 Anion Gap 5.0 BUN 20 H Creatinine 1.00 Est Cr Clr Drug Dosing 101.1 Est GFR ( Amer) 95.7 Est GFR (Non-Af Amer) 82.6 BUN/Creatinine Ratio 20.3 H Glucose 114 H POC Glucose 118 H Calcium 9.1 Troponin I Diagnostic Findings The patient had a nocturnal pulse oximeter last evening with multiple episodes of desaturation. Medications Administered Current Inpatient Medications Acetaminophen (Acetaminophen 325 Mg Tab) 650 mg PO Q4H PRN PRN Reason: Pain or Fever Stop: 11/03/20 20:03 Last Admin: 10/05/20 15:39 Dose: 650 mg Documented by: Aspirin (Aspirin 81 Mg Ectab) 81 mg PO DAILY ADRIANA Stop: 11/04/20 08:59 Last Admin: 10/06/20 08:13 Dose: 81 mg Documented by: Chlorthalidone (Chlorthalidone 25 Mg Tab) 25 mg PO DAILY ADRIANA Stop: 11/04/20 08:59 Last Admin: 10/06/20 08:13 Dose: 25 mg Documented by: Dextrose (Dextrose 50% 50 Ml Syringe) 25 - 50 ml IV UD PRN; Protocol PRN Reason: Hypoglycemia Protocol Stop: 11/03/20 20:03 Glucagon (Glucagon For Inj 1 Mg Vial) 1 mg SQ UD PRN; Protocol PRN Reason: Hypoglycemia Protocol Stop: 11/03/20 20:03 Glucose (Glucose 10 Tabs/Tube) 4 - 8 tabs PO UD PRN; Protocol PRN Reason: Hypoglycemia Protocol Stop: 11/03/20 20:03 Glucose (Glucose 40% Gel 15 Gm Tube) 15 - 30 gm PO UD PRN; Protocol PRN Reason: Hypoglycemia Protocol Stop: 11/03/20 20:03 Heparin Sodium (Porcine) (Heparin Sod 5,000 Unit/0.5 Ml Vial) 5,000 units SQ Q8 ADRIANA Stop: 11/03/20 21:59 Last Admin: 10/06/20 06:40 Dose: 5,000 units Documented by: Hydrochlorothiazide (Hydrochlorothiazide 25 Mg Tab) 12.5 mg PO QAM [facility] Stop: 11/05/20 08:59 Insulin Aspart (Insulin Aspart 100 Units/Ml 3 Ml Pen) 0 units SC ACHS [facility] Stop: 11/03/20 20:03 Last Admin: 10/06/20 08:14 Dose: 5 units Documented by: Losartan Potassium (Losartan Potassium 50 Mg Tab) 100 mg PO QAM [facility] Stop: 11/04/20 08:59 Last Admin: 10/06/20 08:13 Dose: 100 mg Documented by: Miscellaneous (Carbohydrates For Hypoglycemia ) 15 - 30 gm PO UD PRN PRN Reason: Hypoglycemia Protocol Stop: 11/03/20 20:03 Ondansetron HCl (Ondansetron Inj 2 Mg/Ml 2 Ml Vial) 4 mg IV Q6H PRN PRN Reason: Nausea Stop: 11/03/20 20:03 Polyethylene Glycol (Polyethylene (Miralax) 17 Gm Pack) 17 gm PO DAILY PRN PRN Reason: Constipation Stop: 11/03/20 20:03
== END 2020-10-06 11:03 | disposition home or self-care (01) ==
LOC: ED 13:22 → 2S 13:22 → SUATTDRO 15:14 → 2S 19:36

== ENCOUNTER 2020-10-27 12:00 | Inpatient (IN) ==
[2020-10-27] MEDS ORDERED: NITROGLYCERIN 2% OINTMENT 30GM TUBE EXT STA (12:28)
[2020-10-27] MEDS ORDERED: ASPIRIN CHEW 324 MG PO STA (12:28)
[2020-10-27 12:57] LABS: Basophils # (auto) 0.01 K/uL (0-0.2); Basophils % (auto) 0.2 %; Eosinophils % (auto) 2.2 %; Immature Granulocytes # (auto) 0.01 K/uL (0.00-0.02); Immature Granulocytes % (auto) 0.2 %; Lymphocytes # (auto) 1.78 K/uL (1.2-3.4); Lymphocytes % (auto) 38.8 %; Mean Corpuscular Hemoglobin 29.5 pg (25-34); Mean Corpuscular Hgb Conc 33.3 g/dL (32-36); Mean Corpuscular Volume 88.4 fL (80-100); Mean Platelet Volume 10.3 fL (7.4-10.4); Monocytes # (auto) 0.28 K/uL (0.11-0.59); Monocytes % (auto) 6.1 %; Neutrophils # (auto) 2.41 K/uL (1.4-6.5); Neutrophils % (auto) 52.5 %; Platelet Count 243 K/uL (130-400); RDW Standard Deviation 45.5 fL (36.4-46.3); Red Blood Count 5.43 M/uL (4.7-6.1); White Blood Count 4.59 K/uL (4.8-10.8)
--- NOTE | 2020-10-27 12:59 | XRay Report ---
XR chest 1V portable HISTORY: 60 years-old Male Chest Pain acute atypical chest pain COMPARISON: Chest radiograph 10/04/2020 TECHNIQUE: Portable AP view of the chest FINDINGS: Cardiac silhouette is mildly enlarged. Opacity of the right cardiophrenic angle redemonstrated sugges tive of a prominent epicardial fat pad. Mild subsegmental bibasilar opacities suggest atelectasis. No pneumothorax, pleural effusion or overt pulmonary edema. Degenerative changes of the shoulders and s pine. IMPRESSION: No acute process. ACT 112: Negative or not required by law. The above report was generated using voice recognition software. It may contain grammatical, syntax o r spelling errors. Electronically signed by: Sanjay Peters M.D. 10/27/2020 12:57 PM
[2020-10-27 13:10] LABS: D Dimer 210 ug/L FEU (0-500); Partial Thromboplastin Time 25.9 Seconds (21.0-31.0)
[2020-10-27 13:17] LABS: Albumin Level 3.5 gm/dl (3.4-5.0); BUN Creatinine Ratio 18.4 (10-20); Creatinine Clr Calc Pharmacy 107.4 ml/min; Est GFR (African American) 93.5 ml/min; Est GFR (Non-African American) 80.6 ml/min
[2020-10-27 13:22] LABS: Albumin Globulin Ratio 0.7 (0.9-2); Bilirubin,Total 0.7 mg/dl (0.2-1); Globulin 4.8 gm/dl (2.5-4.0); Total Protein 8.3 gm/dl (6.4-8.2); Troponin I 0.469 ng/ml (0-0.045)
[2020-10-27] MEDS ORDERED: carvediloL 12.5 MG TAB PO ONE (13:44)
[2020-10-27 13:52] LABS: Potassium 3.5 mmol/L (3.5-5.1)
--- NOTE | 2020-10-27 18:07 | Emergency Department Note ---
History of Present Illness General Chief complaint: Chest Pain Stated complaint: CHEST PAIN Time Seen by Provider: 10/27/20 12:28 Source: patient and RN notes reviewed Mode of arrival: ambulatory Limitations: no limitations History of Present Illness Provider complaint: Chest pain, high blood pressure Maximum Pain Intensity: 4 This patient is a 60-year-old male who presents emergency department with complaints of chest pain, diaphoresis while at work today. 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 He felt a sudden onset of a chest discomfort and became sweaty. He denied any significant shortness of breath but has had this symptom before. He went home and felt uneasy about the situation. He denied any significant pain or shortness of breath. He noted his blood pressure to be significantly elevated. He saw his primary care physician yesterday and they restarted carvedilol. He has not picked up the medication yet. Patient has had difficulty with blood pressure management. He had been admitted recently for similar issues. He denies any fevers, chills, headache, visual changes. He denies any history of smoking. Home Medications Medication Instructions Recorded Confirmed Type allopurinol 100 mg PO DAILY PRN 10/04/20 10/27/20 History aspirin [Aspirin Low Dose] 81 mg PO DAILY 10/04/20 10/27/20 History glyburide 5 mg PO BID 10/04/20 10/27/20 History Oxygen Home #1 ea 10/06/20 Rx hydrochlorothiazide 25 mg PO QAM #30 tab 10/06/20 10/27/20 Rx losartan 100 mg PO QAM #60 tab 10/06/20 10/27/20 Rx carvedilol 12.5 mg PO BID 10/27/20 10/27/20 History tadalafil 5 mg PO DAILY PRN MDD 1 10/27/20 10/27/20 History Allergies Allergy/AdvReac Type Severity Reaction Status Date / Time Sulfa (Sulfonamide Allergy Unknown Unknown Verified 10/04/20 17:23 Antibiotics) metoprolol AdvReac erectile Verified 10/04/20 16:28 dysfunction nifedipine AdvReac airway Verified 10/04/20 16:27 edema Past Med/Surg History Medical History Diabetes mellitus, type II History of blood in urine HTN (hypertension) Hyperlipidemia Obesity Surgical History History of eye removal Family History Father Hypertension Mother Hypertension Social History Smoking Status: Never smoker Second Hand Exposure: No; Hx Alcohol Use: No Hx Substance Use: No Preferred Language: Lithuanian Communication Ability: Effective Haunted History Tour Guide Required: No Beliefs That Will Affect Care: None marital status: Current Living Situation: Spouse Feels Safe at Home: Yes Assistive Devices: None Review of Systems See HPI for pertinent positives & negatives. and A total of 10 systems reviewed and were otherwise negative Physical Exam Vital Signs Vital Signs - 24 hr 10/27/20 12:01 10/27/20 12:29 10/27/20 13:05 Temperature 36.8 C Temperature Source Temporal Artery Scan Pulse Rate 102 H Pulse Rate [Apical] 96 H Pulse Rate from SpO2 Sensor Respiratory Rate 18 18 Respiratory Effort / Characteristics Non-Labored Spontaneous Respiratory Depth Normal Normal Respiratory Pattern Regular Blood Pressure 174/117 H Blood Pressure [Right Arm] 140/105 H Blood Pressure Mean 136 Blood Pressure Mean [Right Arm] 116 Blood Pressure Position Sitting Blood Pressure Position [Right Arm] Sitting Pulse Oximetry 97 97 Oxygen Delivery Method Room Air Room Air Sepsis Recent Fever Within 48 Hours No Sepsis New/Unexplained Change in Mental Status N/A Sepsis Action Taken by Nursing No Action Required 10/27/20 14:08 10/27/20 14:30 10/27/20 15:00 Temperature Temperature Source Pulse Rate 94 H 87 98 H Pulse Rate [Apical] Pulse Rate from SpO2 Sensor Respiratory Rate 20 14 14 Respiratory Effort / Characteristics Respiratory Depth Respiratory Pattern Blood Pressure 133/94 146/91 H Blood Pressure [Right Arm] Blood Pressure Mean 107 109 Blood Pressure Mean [Right Arm] Blood Pressure Position Blood Pressure Position [Right Arm] Pulse Oximetry Oxygen Delivery Method Sepsis Recent Fever Within 48 Hours Sepsis New/Unexplained Change in Mental Status Sepsis Action Taken by Nursing 10/27/20 16:23 10/27/20 17:00 10/27/20 18:06 Temperature Temperature Source Pulse Rate 82 75 78 Pulse Rate [Apical] Pulse Rate from SpO2 Sensor 76 78 Respiratory Rate 19 18 20 Respiratory Effort / Characteristics Respiratory Depth Respiratory Pattern Blood Pressure 151/91 H 171/113 H 146/95 H Blood Pressure [Right Arm] Blood Pressure Mean 111 132 112 Blood Pressure Mean [Right Arm] Blood Pressure Position Blood Pressure Position [Right Arm] Pulse Oximetry 95 98 96 Oxygen Delivery Method Sepsis Recent Fever Within 48 Hours Sepsis New/Unexplained Change in Mental Status Sepsis Action Taken by Nursing 10/27/20 18:30 10/27/20 19:00 10/27/20 19:30 Temperature Temperature Source Pulse Rate 77 78 73 Pulse Rate [Apical] Pulse Rate from SpO2 Sensor 76 77 75 Respiratory Rate 15 15 14 Respiratory Effort / Characteristics Respiratory Depth Respiratory Pattern Blood Pressure 162/99 H Blood Pressure [Right Arm] Blood Pressure Mean 120 Blood Pressure Mean [Right Arm] Blood Pressure Position Blood Pressure Position [Right Arm] Pulse Oximetry 95 96 97 Oxygen Delivery Method Sepsis Recent Fever Within 48 Hours Sepsis New/Unexplained Change in Mental Status Sepsis Action Taken by Nursing Vital signs reviewed. Noted to be markedly hypertensive General: Generally well-appearing, obese 60-year-old male, in no significant distress. HEENT: No scleral icterus, PERRLA, neck supple. Atraumatic. Cardiovascular: Regular rate and rhythm, no extra sounds. Pulmonary: Clear to auscultation bilaterally, normal work of breathing. Abdomen: Soft, obese, nontender, nondistended, positive bowel sounds. Musculoskeletal: Atraumatic, minimal peripheral edema. Neurologic: Patient awake alert and oriented x 3 Skin: Warm, dry, no rash Course Administered Medications Discontinued Medications Acetaminophen (Acetaminophen 500 Mg Tab) 1,000 mg PO NOW STA Stop: 10/27/20 19:29 Last Admin: 10/27/20 19:31 Dose: 1,000 mg Documented by: [id number] Aspirin (Aspirin Chew 324 Mg) 324 mg PO NOW STA Stop: 10/27/20 12:29 Last Admin: 10/27/20 12:49 Dose: 324 mg Documented by: [id number] Carvedilol (Carvedilol 12.5 Mg Tab) 12.5 mg PO NOW ONE Stop: 10/27/20 13:45 Last Admin: 10/27/20 14:07 Dose: 12.5 mg Documented by: [id number] Nitroglycerin (Nitroglycerin 2% Ointment 30gm Tube) 1 inch EXT NOW STA Stop: 10/27/20 12:29 Last Admin: 10/27/20 12:57 Dose: 1 inch Documented by: [id number] Medical Decision Making Differential Diagnosis Cardiac ischemia, aortic dissection, pulmonary embolism, pneumothorax, pneumonia, pericarditis, myocarditis, esophageal rupture, GERD, cholecystitis, pancreatitis, musculoskeletal, as well as other pathologies. Medical Records Attestation: I reviewed the patient's medical records. Home Medications Current Medication List: was personally reviewed by me Laboratory Data Attestation: I reviewed the patient's lab results. Result diagrams: 10/27/20 12:45 10/27/20 13:30 Lab Results 10/27/20 10/27/20 10/27/20 Range/Units 12:45 12:45 12:45 WBC 4.59 L (4.8-10.8) K/uL RBC 5.43 (4.7-6.1) M/uL Hgb 16.0 (14.0-18.0) g/dL Hct 48.0 (42-52) % MCV 88.4 (80-100) fL MCH 29.5 (25-34) pg MCHC 33.3 (32-36) g/dL RDW Std Deviation 45.5 (36.4-46.3) fL RDW Coeff of Ricky 14.0 (11.5-14.5) % Plt Count 243 (130-400) K/uL MPV 10.3 (7.4-10.4) fL Immature Gran % (Auto) 0.2 % Neut % (Auto) 52.5 % Lymph % (Auto) 38.8 % [place] % (Auto) 6.1 % Eos % (Auto) 2.2 % Baso % (Auto) 0.2 % Neut # (Auto) 2.41 (1.4-6.5) K/uL Lymph # (Auto) 1.78 (1.2-3.4) K/uL [place] # (Auto) 0.28 (0.11-0.59) K/uL Eos # (Auto) 0.10 (0-0.5) K/uL Baso # (Auto) 0.01 (0-0.2) K/uL Immature Gran # (Auto) 0.01 (0.00-0.02) K/uL APTT 25.9 (21.0-31.0) Seconds PTT Ratio 1.0 D-Dimer 210 (0-500) ug/L FEU Sodium 138 (136-145) mmol/L Potassium (3.5-5.1) mmol/L Chloride 107 (98-107) mmol/L Carbon Dioxide 25 (21-32) mmol/L Anion Gap 6.0 (3-11) BUN 19 H (7-18) mg/dl Creatinine 1.02 (0.6-1.4) mg/dl Est Cr Clr Drug Dosing 107.4 ml/min Est GFR ( Amer) 93.5 ml/min Est GFR (Non-Af Amer) 80.6 ml/min BUN/Creatinine Ratio 18.4 (10-20) Glucose 119 H (70-99) mg/dl Calcium 9.0 (8.5-10.1) mg/dl Total Bilirubin 0.7 (0.2-1) mg/dl AST (15-37) U/L ALT 79 H (12-78) U/L Alkaline Phosphatase 64 (45-117) U/L Troponin I 0.469 H* (0-0.045) ng/ml Total Protein 8.3 H (6.4-8.2) gm/dl Albumin 3.5 (3.4-5.0) gm/dl Globulin 4.8 H (2.5-4.0) gm/dl Albumin/Globulin Ratio 0.7 L (0.9-2) Lipase 117 (73-393) U/L COVID-19 Eval Order SARS-CoV-2 (PCR) (Negative) 10/27/20 10/27/20 10/27/20 Range/Units 13:30 15:00 18:05 WBC (4.8-10.8) K/uL RBC (4.7-6.1) M/uL Hgb (14.0-18.0) g/dL Hct (42-52) % MCV (80-100) fL MCH (25-34) pg MCHC (32-36) g/dL RDW Std Deviation (36.4-46.3) fL RDW Coeff of Ricky (11.5-14.5) % Plt Count (130-400) K/uL MPV (7.4-10.4) fL Immature Gran % (Auto) % Neut % (Auto) % Lymph % (Auto) % [place] % (Auto) % Eos % (Auto) % Baso % (Auto) % Neut # (Auto) (1.4-6.5) K/uL Lymph # (Auto) (1.2-3.4) K/uL [place] # (Auto) (0.11-0.59) K/uL Eos # (Auto) (0-0.5) K/uL Baso # (Auto) (0-0.2) K/uL Immature Gran # (Auto) (0.00-0.02) K/uL APTT (21.0-31.0) Seconds PTT Ratio D-Dimer (0-500) ug/L FEU Sodium (136-145) mmol/L Potassium 3.5 (3.5-5.1) mmol/L Chloride (98-107) mmol/L Carbon Dioxide (21-32) mmol/L Anion Gap (3-11) BUN (7-18) mg/dl Creatinine (0.6-1.4) mg/dl Est Cr Clr Drug Dosing ml/min Est GFR ( Amer) ml/min Est GFR (Non-Af Amer) ml/min BUN/Creatinine Ratio (10-20) Glucose (70-99) mg/dl Calcium (8.5-10.1) mg/dl Total Bilirubin (0.2-1) mg/dl AST 45 H (15-37) U/L ALT (12-78) U/L Alkaline Phosphatase (45-117) U/L Troponin I 0.551 H* (0-0.045) ng/ml Total Protein (6.4-8.2) gm/dl Albumin (3.4-5.0) gm/dl Globulin (2.5-4.0) gm/dl Albumin/Globulin Ratio (0.9-2) Lipase (73-393) U/L COVID-19 Eval Order Covid19 at [facility] SARS-CoV-2 (PCR) (Negative) 10/27/20 Range/Units 18:05 WBC (4.8-10.8) K/uL RBC (4.7-6.1) M/uL Hgb (14.0-18.0) g/dL Hct (42-52) % MCV (80-100) fL MCH (25-34) pg MCHC (32-36) g/dL RDW Std Deviation (36.4-46.3) fL RDW Coeff of Ricky (11.5-14.5) % Plt Count (130-400) K/uL MPV (7.4-10.4) fL Immature Gran % (Auto) % Neut % (Auto) % Lymph % (Auto) % [place] % (Auto) % Eos % (Auto) % Baso % (Auto) % Neut # (Auto) (1.4-6.5) K/uL Lymph # (Auto) (1.2-3.4) K/uL [place] # (Auto) (0.11-0.59) K/uL Eos # (Auto) (0-0.5) K/uL Baso # (Auto) (0-0.2) K/uL Immature Gran # (Auto) (0.00-0.02) K/uL APTT (21.0-31.0) Seconds PTT Ratio D-Dimer (0-500) ug/L FEU Sodium (136-145) mmol/L Potassium (3.5-5.1) mmol/L Chloride (98-107) mmol/L Carbon Dioxide (21-32) mmol/L Anion Gap (3-11) BUN (7-18) mg/dl Creatinine (0.6-1.4) mg/dl Est Cr Clr Drug Dosing ml/min Est GFR ( Amer) ml/min Est GFR (Non-Af Amer) ml/min BUN/Creatinine Ratio (10-20) Glucose (70-99) mg/dl Calcium (8.5-10.1) mg/dl Total Bilirubin (0.2-1) mg/dl AST (15-37) U/L ALT (12-78) U/L Alkaline Phosphatase (45-117) U/L Troponin I (0-0.045) ng/ml Total Protein (6.4-8.2) gm/dl Albumin (3.4-5.0) gm/dl Globulin (2.5-4.0) gm/dl Albumin/Globulin Ratio (0.9-2) Lipase (73-393) U/L COVID-19 Eval Order SARS-CoV-2 (PCR) NEGATIVE (Negative) Imaging Data Radiologist's Impression: Chest X-Ray 10/27/20 12:29 XR chest 1V portable HISTORY: 60 years-old Male Chest Pain acute atypical chest pain COMPARISON: Chest radiograph 10/04/2020 TECHNIQUE: Portable AP view of the chest FINDINGS: Cardiac silhouette is mildly enlarged. Opacity of the right cardiophrenic angle redemonstrated suggestive of a prominent epicardial fat pad. Mild subsegmental bibasilar opacities suggest atelectasis. No pneumothorax, pleural effusion or overt pulmonary edema. Degenerative changes of the shoulders and spine. IMPRESSION: No acute process. ACT 112: Negative or not required by law. The above report was generated using voice recognition software. It may contain grammatical, syntax or spelling errors. Electronically signed by: Sanjay Peters M.D. 10/27/2020 12:57 PM ECG Data Attestation: I personally reviewed and interpreted this ECG as follows: Indication: + chest pain Rate (beats per minute): 98 Rhythm: + sinus rhythm ECG Intervals/blocks: + First degree AV block ECG ST segments: + Nonspecific ST abnormalities and + repolarization abnormalities (T wave inversions in the inferior and lateral leads) ECG Findings: + Other (Left atrial enlargement); no PACs and no PVCs Blood Pressure Blood Pressure Findings: Elevated blood pressure Blood Pressure Disposition: further management by hospitalist MDM Narrative This patient was evaluated and appeared to be in no significant distress. IV access was obtained and laboratory work was drawn. The patient was medicated with 12.5 mg of p.o. carvedilol and give him 1 inch of Nitropaste to the anterior chest wall. An order for cardiac monitoring was placed and the patient was noted to be in a sinus rhythm at 96 bpm. EKG reveals T wave inversions in the inferior and lateral leads. There is no marked change from previous although subtle changes in the T waves of both the anterior and lateral leads. Patient's initial troponin does note to be elevated at 0.469 with a repeat of 0.551. Patient did receive aspirin upon my initial evaluation. Chest x-ray reveals no evidence of acute pathology. Patient's case was discussed with the hospitalist service for further evaluation and management. Impression & Plan Troponin level elevated, Chest pain, Uncontrolled hypertension Discharge Plan Visit Data Chief Complaint: Chest Pain Stated Complaint: CHEST PAIN ED Provider: Camelia Royal Discharge Problem: Troponin level elevated, Chest pain, Uncontrolled hypertension Patient Disposition: Admitted As Inpatient Discharge Instructions Interventions: ED Discharge Assessment Last Done: 10/27/20 19:50
[2020-10-27] MEDS ORDERED: ACETAMINOPHEN 500 MG TAB PO STA (19:28)
[2020-10-27] MEDS ORDERED: LABETALOL HCL IV 5 MG/ML 20ML IV PRN (20:14)
[2020-10-27] MEDS ORDERED: NITROGLYCERIN SL 0.4 MG/TAB TAB SL PRN (20:14)
[2020-10-27] MEDS ORDERED: ONDANSETRON INJ 2 MG/ML 2 ML VIAL IV PRN (20:14)
--- NOTE | 2020-10-27 20:23 | History and Physical Report ---
DATE OF ADMISSION: 10/27/2020 CHIEF COMPLAINT: Chest pain. HISTORY OF PRESENT ILLNESS: This is a 60-year-old male with past medical history significant for type 2 diabetes, hyperlipidemia, hyperuricemia, obstructive sleep apnea, history of paroxysmal supraventricular tachycardia, hypertension, obesity, BPH, blind in the left eye, presents with chest pain. The patient says he was at work when he had a couple of minutes of shortness of breath and profuse sweating. He went home and when at home, he had some mild left-sided chest discomfort, he came to the ER. By the time he came to the ER, the chest pain resolved. He is feeling fine. In the ER, he was given aspirin. His blood pressure was high. He saw his deputy clerk of court recently and was prescribed Coreg but has not filled the medication yet. In the ER, the patient was given Coreg .As per the [facility] cardiology notes, there is a plan for nuclear stress test. Currently, patient is resting comfortably and hemodynamically stable. Some mild headache. Denies any blurred vision, no earache, no runny nose, no sore throat, no cough, no fever, no chills. Appetite is okay. Currently chest pain , no shortness of breath, no nausea, no abdominal pain. Normal bowel and bladder movements. No swelling in the legs.Otherwise ambulates okay. ALLERGIES: SULFA ANTIBIOTICS, METOPROLOL, NIFEDIPINE. PAST MEDICAL HISTORY: As mentioned above. PAST SURGICAL HISTORY: No surgical history on file. MEDICATIONS: The patient is on allopurinol 100 mg p.o. daily p.r.n., aspirin 81 mg p.o. daily, Coreg 12.5 mg p.o. b.i.d., glyburide 5 mg p.o. b.i.d., hydrochlorothiazide 25 mg p.o. a.m., losartan 100 mg p.o. a.m., tadalafil 5 mg p.r.n. FAMILY HISTORY: No family history on file. SOCIAL HISTORY: . No smoking. Alcohol rarely. No drug use. REVIEW OF SYMPTOMS: As per HPI. Rest of the review of systems negative. PHYSICAL EXAMINATION: GENERAL: The patient is morbidly obese, not in acute distress. VITAL SIGNS: Temperature 36.8, pulse 82, respiratory rate 19, blood pressure 151/91, oxygen 95% on room air. HEENT: Atraumatic. Oral mucosa moist. NECK: No JVD. No neck masses. CARDIOVASCULAR: S1, S2 heard, regular rate and rhythm, no murmur, no gallop. RESPIRATORY SYSTEM: Normal AP diameter. No accessory muscle use. No wheezing, no crackles. ABDOMEN: Soft, bowel sounds present, nontender. No distention. CENTRAL NERVOUS SYSTEM: Cranial nerves II-XII grossly intact. Nonfocal. EXTREMITIES: No edema, no erythema. LABORATORY DATA: WBC 4.5, hemoglobin 16, hematocrit 48, platelets 243. APTT 25.9, PTT 1. D-dimer 210. Sodium 138, potassium 3.5, chloride 107, bicarb 25, BUN 19, creatinine 1.02, serum glucose 119, calcium 9, total bilirubin 0.7, AST 45, ALT 79, alkaline phosphatase 64. Troponin I of 0.5. Lipase 117. Chest x-ray: No acute process. EKG: Sinus rhythm, first-degree AV block at a rate of 98, T-wave inversion in lateral leads which were present in previous EKG. ASSESSMENT AND PLAN: This 60-year-old presents with chest discomfort. 1. Chest discomfort, rule out acute coronary syndrome. Troponin is mildly elevated, but he has chronic elevation of troponin. Currently asymptomatic. EKG, no acute changes. We will observe in the hospital. He recently saw cardiology and there is a plan for nuclear stress test. We will keep in the hospital, n.p.o. after midnight, serial enzymes, echocardiogram, and consult cardiology in the a.m. for further recommendations. 2. History of paroxysmal supraventricular tachycardia, Coreg was started by cardiology. 3. History of sleep apnea, on CPAP at bedtime. 4. History of diabetes. Hold his glyburide. Place on insulin sliding scale. Follow hemoglobin A1c level, follow the blood sugars. 5. Obesity, needs counseling. 6. History of hypertension. Continue his home medications of Coreg, hydrochlorothiazide, losartan and place him on labetalol p.r.n. We will monitor the blood pressure. 7. Deep venous thrombosis prophylaxis, sequential compression devices for now. 8. Disposition: Monitor in the telemetry floor. Level 1 full code. Expect discharge home and follow with family doctor. MATTHEW
[2020-10-27] MEDS: INSULIN ASPART 100 UNITS/ML 3 ML PEN SC SCH (20:59)
[2020-10-27] MEDS ORDERED: Heparin IV Adult Wt-Based Standard *NO* Bolus Protocol STA (21:36)
--- NOTE | 2020-10-27 21:38 | Communication Note ---
Date of Service: October 27, 2020 Notified by RN of progressive troponin elevation. 0.968 from 0.551 from 0.446. Patient comfortable as per RN. AP NSTEMI Initiate IV Heparin Continue home aspirin, beta-melissa Initiate statin Await Cardiology input. Will relay to AM provider.
[2020-10-27] MEDS: HEPARIN SODIUM/DEXTROSE 25,000 UNITS/500 ML BAG IV SCH (22:03)
[2020-10-27] MEDS: ACETAMINOPHEN 325 MG TAB PO PRN (23:44)
[2020-10-28 04:21] LABS: Basophils # (auto) 0.01 K/uL (0-0.2); Basophils % (auto) 0.1 %; Eosinophils # (auto) 0.24 K/uL (0-0.5); Hematocrit (blood only) 43.8 % (42-52); Hemoglobin 14.5 g/dL (14.0-18.0); Immature Granulocytes # (auto) 0.02 K/uL (0.00-0.02); Immature Granulocytes % (auto) 0.3 %; Lymphocytes # (auto) 3.46 K/uL (1.2-3.4); Mean Corpuscular Hemoglobin 28.7 pg (25-34); Mean Corpuscular Hgb Conc 33.1 g/dL (32-36); Mean Corpuscular Volume 86.6 fL (80-100); Mean Platelet Volume 10.1 fL (7.4-10.4); Monocytes # (auto) 0.59 K/uL (0.11-0.59); Monocytes % (auto) 7.5 %; Neutrophils # (auto) 3.55 K/uL (1.4-6.5); Neutrophils % (auto) 45.1 %; Platelet Count 212 K/uL (130-400); RDW Standard Deviation 44.2 fL (36.4-46.3); Red Blood Count 5.06 M/uL (4.7-6.1); White Blood Count 7.87 K/uL (4.8-10.8)
[2020-10-28 04:36] LABS: BUN Creatinine Ratio 21.2 (10-20); Calcium 8.5 mg/dl (8.5-10.1); Creatinine Clr Calc Pharmacy 102.6 ml/min; Est GFR (African American) 89.2 ml/min; Magnesium 2.2 mg/dl (1.8-2.4); Potassium 3.2 mmol/L (3.5-5.1)
[2020-10-28 04:42] LABS: Troponin I 1.21 ng/ml (0-0.045)
[2020-10-28 04:44] LABS: Partial Thromboplastin Time 53.2 Seconds (21.0-31.0)
--- NOTE | 2020-10-28 06:24 | Electrocardiogram Report ---
Test Reason : Blood Pressure : / mmHG Vent. Rate : 098 BPM Atrial Rate : 098 BPM P-R Int : 212 ms QRS Dur : 098 ms QT Int : 362 ms P-R-T Axes : 059 063 198 degrees QTc Int : 462 ms Sinus rhythm with 1st degree A-V block Possible Left atrial enlargement T wave abnormality, consider inferolateral ischemia Abnormal ECG When compared with ECG of 05-OCT-2020 05:18, T wave inversion more evident in Lateral leads Confirmed by Travis Manuel ([id number]) on 10/28/2020 6:23:40 AM Referred By: REFERRED SELF Confirmed By:Travis Manuel
--- NOTE | 2020-10-28 07:08 | Hospitalist Progress Note ---
Date of Service October 28, 2020 Assessment & Plan (1) NSTEMI (non-ST elevated myocardial infarction): (2) Chest pain: (3) Elevated troponin: (4) Uncontrolled hypertension: This 60-year-old presents with chest discomfort. 1. Chest discomfort, rule out acute coronary syndrome. Troponin mildly elevated on admission but he has chronic elevation of troponin. Asymptomatic on admission as his chest pain resolved. He recently saw cardiology and there is a plan for nuclear stress test. EKG with chronic age undetermined septal infarct and diffuse T wave inversions c/w his known hx of severe concentric LVH and hypertensive heart disease. The EKG is therefore really non diagnostic due to the chronic changes. Troponin overnight increased, and patient was started on IV heparin by the sidewalk repairer Echocardiogram obtained - there is severe concentric LVH. No regional wall motion abnormalities noted. LV systolic function is normal. The LVEF 65 to 70% there is no significant valvular heart disease. The aortic root diameter is normal. The proximal ascending aorta is not visualized well enough to allow measurement. Cardio consulted, likely plan for cardiac cath tomorrow N.p.o. after midnight 2. History of paroxysmal supraventricular tachycardia, Coreg was started by cardiology. 3. Hypertension, uncontrolled. His home medications of Coreg, hydrochlorothiazide, losartan and place him on labetalol p.r.n. (Coreg was just started and not picked up at the pharmacy), HCTZ on hold d/t hypokalemia Spironolactone now started by cardiology for better blood pressure control We will monitor the blood pressure while inpt. 4. Hyperlipidemia, continue atorvastatin, LDL 72 5. Hypokalemia -Potassium 3.2 this morning, replaced p.o. and IV -Repeat potassium this afternoon and in the morning, replete and monitor 6. History of diabetes. Hold his glyburide. Place on insulin sliding scale. Follow hemoglobin A1c level, follow the blood sugars. 7. Obesity, needs counseling. 8. Sleep apnea, on CPAP at bedtime. DVT prophylaxis: SCDs, IV heparin Disposition: Monitor on the telemetry. Expect discharge home and follow with family doctor and spring layer. Admission and Anticipated Discharge Date Admission Date: October 27, 2020 Subjective Patient seen in follow-up of chest pain Currently lying in bed, in acute distress, at the bedside Denies any shortness of breath, dizziness palpitations Never had chest pain like this before Chest pain resolved when patient arrived to the ER Troponin elevated overnight, patient was started on IV heparin Evaluated by cardiology, plan for likely cardiac cath tomorrow Review of Systems Review of Systems: All systems reviewed & are unremarkable except as noted in HPI & below Constitutional: no fever and no chills Respiratory: no cough and no dyspnea Cardiovascular: no chest pain and no palpitations Gastrointestinal: no abdominal pain, no nausea and no vomiting Physical Exam Physical Exam: GENERAL: obese male, not in acute distress. HEENT: Normocephalic, atraumatic. EOMI, PERRL, Oral mucosa moist. NECK: No JVD. No neck masses. CARDIOVASCULAR: S1, S2 heard, regular rate and rhythm, no murmur, no gallop. RESPIRATORY: Normal AP diameter. No accessory muscle use. No wheezing, no crackles. ABDOMEN: Soft, bowel sounds present, nontender. Obese. No distention. NEURO: Alert and oriented x3, answering questions appropriately, speech fluent, no facial asymmetry, moves extremities spontaneously EXTREMITIES: No edema, no erythema. Results & Data Results & Data ([facility]) Vital Signs (Past 12 Hours) Vital Signs Temp Pulse Pulse Resp BP Pulse Ox 10/28/20 02:45 36.6 C 84 18 159/81 H 95 10/27/20 23:34 36.6 C 77 19 125/70 98 10/27/20 23:10 75 10/27/20 20:00 36.6 C 80 20 157/94 H 94 10/27/20 19:30 73 14 97 Laboratory Results 10/28/20 10/28/20 10/28/20 Range/Units 05:52 04:09 04:09 WBC (4.8-10.8) K/uL RBC (4.7-6.1) M/uL Hgb (14.0-18.0) g/dL Hct (42-52) % MCV (80-100) fL MCH (25-34) pg MCHC (32-36) g/dL RDW Std Deviation (36.4-46.3) fL RDW Coeff of Ricky (11.5-14.5) % Plt Count (130-400) K/uL MPV (7.4-10.4) fL Immature Gran % (Auto) % Neut % (Auto) % Lymph % (Auto) % [place] % (Auto) % Eos % (Auto) % Baso % (Auto) % Neut # (Auto) (1.4-6.5) K/uL Lymph # (Auto) (1.2-3.4) K/uL [place] # (Auto) (0.11-0.59) K/uL Eos # (Auto) (0-0.5) K/uL Baso # (Auto) (0-0.2) K/uL Immature Gran # (Auto) (0.00-0.02) K/uL APTT 53.2 H* (21.0-31.0) Seconds PTT Ratio 2.0 D-Dimer (0-500) ug/L FEU Sodium (136-145) mmol/L Potassium (3.5-5.1) mmol/L Chloride (98-107) mmol/L Carbon Dioxide (21-32) mmol/L Anion Gap (3-11) BUN (7-18) mg/dl Creatinine (0.6-1.4) mg/dl Est Cr Clr Drug Dosing ml/min Est GFR ( Amer) ml/min Est GFR (Non-Af Amer) ml/min BUN/Creatinine Ratio (10-20) Glucose (70-99) mg/dl POC Glucose 165 H (70-99) mg/dl Estimat Average Glucose Pending Hemoglobin A1c Pending Calcium (8.5-10.1) mg/dl Magnesium (1.8-2.4) mg/dl Total Bilirubin (0.2-1) mg/dl AST (15-37) U/L ALT (12-78) U/L Alkaline Phosphatase (45-117) U/L Troponin I (0-0.045) ng/ml Total Protein (6.4-8.2) gm/dl Albumin (3.4-5.0) gm/dl Globulin (2.5-4.0) gm/dl Albumin/Globulin Ratio (0.9-2) Triglycerides (0-150) mg/dl Cholesterol (0-200) mg/dl LDL Cholesterol, Calc mg/dl VLDL Cholesterol, Calc mg/dl HDL Cholesterol mg/dl Cholesterol/HDL Ratio Lipase (73-393) U/L COVID-19 Eval Order SARS-CoV-2 (PCR) (Negative) 10/28/20 10/28/20 10/27/20 Range/Units 04:09 04:09 20:48 WBC 7.87 (4.8-10.8) K/uL RBC 5.06 (4.7-6.1) M/uL Hgb 14.5 (14.0-18.0) g/dL Hct 43.8 (42-52) % MCV 86.6 (80-100) fL MCH 28.7 (25-34) pg MCHC 33.1 (32-36) g/dL RDW Std Deviation 44.2 (36.4-46.3) fL RDW Coeff of Ricky 14.0 (11.5-14.5) % Plt Count 212 (130-400) K/uL MPV 10.1 (7.4-10.4) fL Immature Gran % (Auto) 0.3 % Neut % (Auto) 45.1 % Lymph % (Auto) 44.0 % [place] % (Auto) 7.5 % Eos % (Auto) 3.0 % Baso % (Auto) 0.1 % Neut # (Auto) 3.55 (1.4-6.5) K/uL Lymph # (Auto) 3.46 H (1.2-3.4) K/uL [place] # (Auto) 0.59 (0.11-0.59) K/uL Eos # (Auto) 0.24 (0-0.5) K/uL Baso # (Auto) 0.01 (0-0.2) K/uL Immature Gran # (Auto) 0.02 (0.00-0.02) K/uL APTT (21.0-31.0) Seconds PTT Ratio D-Dimer (0-500) ug/L FEU Sodium 139 (136-145) mmol/L Potassium 3.2 L (3.5-5.1) mmol/L Chloride 107 (98-107) mmol/L Carbon Dioxide 28 (21-32) mmol/L Anion Gap 4.0 (3-11) BUN 23 H (7-18) mg/dl Creatinine 1.06 (0.6-1.4) mg/dl Est Cr Clr Drug Dosing 102.6 ml/min Est GFR ( Amer) 89.2 ml/min Est GFR (Non-Af Amer) 77.0 ml/min BUN/Creatinine Ratio 21.2 H (10-20) Glucose 169 H (70-99) mg/dl POC Glucose (70-99) mg/dl Estimat Average Glucose Hemoglobin A1c Calcium 8.5 (8.5-10.1) mg/dl Magnesium 2.2 (1.8-2.4) mg/dl Total Bilirubin (0.2-1) mg/dl AST (15-37) U/L ALT (12-78) U/L Alkaline Phosphatase (45-117) U/L Troponin I 1.210 H* 0.968 H* (0-0.045) ng/ml Total Protein (6.4-8.2) gm/dl Albumin (3.4-5.0) gm/dl Globulin (2.5-4.0) gm/dl Albumin/Globulin Ratio (0.9-2) Triglycerides 214 H (0-150) mg/dl Cholesterol 150 (0-200) mg/dl LDL Cholesterol, Calc 72 mg/dl VLDL Cholesterol, Calc 43 mg/dl HDL Cholesterol 35 mg/dl Cholesterol/HDL Ratio 4 Lipase (73-393) U/L COVID-19 Eval Order SARS-CoV-2 (PCR) (Negative) 10/27/20 10/27/20 10/27/20 Range/Units 20:19 18:05 18:05 WBC (4.8-10.8) K/uL RBC (4.7-6.1) M/uL Hgb (14.0-18.0) g/dL Hct (42-52) % MCV (80-100) fL MCH (25-34) pg MCHC (32-36) g/dL RDW Std Deviation (36.4-46.3) fL RDW Coeff of Ricky (11.5-14.5) % Plt Count (130-400) K/uL MPV (7.4-10.4) fL Immature Gran % (Auto) % Neut % (Auto) % Lymph % (Auto) % [place] % (Auto) % Eos % (Auto) % Baso % (Auto) % Neut # (Auto) (1.4-6.5) K/uL Lymph # (Auto) (1.2-3.4) K/uL [place] # (Auto) (0.11-0.59) K/uL Eos # (Auto) (0-0.5) K/uL Baso # (Auto) (0-0.2) K/uL Immature Gran # (Auto) (0.00-0.02) K/uL APTT (21.0-31.0) Seconds PTT Ratio D-Dimer (0-500) ug/L FEU Sodium (136-145) mmol/L Potassium (3.5-5.1) mmol/L Chloride (98-107) mmol/L Carbon Dioxide (21-32) mmol/L Anion Gap (3-11) BUN (7-18) mg/dl Creatinine (0.6-1.4) mg/dl Est Cr Clr Drug Dosing ml/min Est GFR ( Amer) ml/min Est GFR (Non-Af Amer) ml/min BUN/Creatinine Ratio (10-20) Glucose (70-99) mg/dl POC Glucose 76 (70-99) mg/dl Estimat Average Glucose Hemoglobin A1c Calcium (8.5-10.1) mg/dl Magnesium (1.8-2.4) mg/dl Total Bilirubin (0.2-1) mg/dl AST (15-37) U/L ALT (12-78) U/L Alkaline Phosphatase (45-117) U/L Troponin I (0-0.045) ng/ml Total Protein (6.4-8.2) gm/dl Albumin (3.4-5.0) gm/dl Globulin (2.5-4.0) gm/dl Albumin/Globulin Ratio (0.9-2) Triglycerides (0-150) mg/dl Cholesterol (0-200) mg/dl LDL Cholesterol, Calc mg/dl VLDL Cholesterol, Calc mg/dl HDL Cholesterol mg/dl Cholesterol/HDL Ratio Lipase (73-393) U/L COVID-19 Eval Order Covid19 at [facility] SARS-CoV-2 (PCR) NEGATIVE (Negative) 10/27/20 10/27/20 10/27/20 Range/Units 15:00 13:30 12:45 WBC (4.8-10.8) K/uL RBC (4.7-6.1) M/uL Hgb (14.0-18.0) g/dL Hct (42-52) % MCV (80-100) fL MCH (25-34) pg MCHC (32-36) g/dL RDW Std Deviation (36.4-46.3) fL RDW Coeff of Ricky (11.5-14.5) % Plt Count (130-400) K/uL MPV (7.4-10.4) fL Immature Gran % (Auto) % Neut % (Auto) % Lymph % (Auto) % [place] % (Auto) % Eos % (Auto) % Baso % (Auto) % Neut # (Auto) (1.4-6.5) K/uL Lymph # (Auto) (1.2-3.4) K/uL [place] # (Auto) (0.11-0.59) K/uL Eos # (Auto) (0-0.5) K/uL Baso # (Auto) (0-0.2) K/uL Immature Gran # (Auto) (0.00-0.02) K/uL APTT (21.0-31.0) Seconds PTT Ratio D-Dimer (0-500) ug/L FEU Sodium 138 (136-145) mmol/L Potassium 3.5 (3.5-5.1) mmol/L Chloride 107 (98-107) mmol/L Carbon Dioxide 25 (21-32) mmol/L Anion Gap 6.0 (3-11) BUN 19 H (7-18) mg/dl Creatinine 1.02 (0.6-1.4) mg/dl Est Cr Clr Drug Dosing 107.4 ml/min Est GFR ( Amer) 93.5 ml/min Est GFR (Non-Af Amer) 80.6 ml/min BUN/Creatinine Ratio 18.4 (10-20) Glucose 119 H (70-99) mg/dl POC Glucose (70-99) mg/dl Estimat Average Glucose Hemoglobin A1c Calcium 9.0 (8.5-10.1) mg/dl Magnesium (1.8-2.4) mg/dl Total Bilirubin 0.7 (0.2-1) mg/dl AST 45 H (15-37) U/L ALT 79 H (12-78) U/L Alkaline Phosphatase 64 (45-117) U/L Troponin I 0.551 H* 0.469 H* (0-0.045) ng/ml Total Protein 8.3 H (6.4-8.2) gm/dl Albumin 3.5 (3.4-5.0) gm/dl Globulin 4.8 H (2.5-4.0) gm/dl Albumin/Globulin Ratio 0.7 L (0.9-2) Triglycerides (0-150) mg/dl Cholesterol (0-200) mg/dl LDL Cholesterol, Calc mg/dl VLDL Cholesterol, Calc mg/dl HDL Cholesterol mg/dl Cholesterol/HDL Ratio Lipase 117 (73-393) U/L COVID-19 Eval Order SARS-CoV-2 (PCR) (Negative) 10/27/20 10/27/20 Range/Units 12:45 12:45 WBC 4.59 L (4.8-10.8) K/uL RBC 5.43 (4.7-6.1) M/uL Hgb 16.0 (14.0-18.0) g/dL Hct 48.0 (42-52) % MCV 88.4 (80-100) fL MCH 29.5 (25-34) pg MCHC 33.3 (32-36) g/dL RDW Std Deviation 45.5 (36.4-46.3) fL RDW Coeff of Ricky 14.0 (11.5-14.5) % Plt Count 243 (130-400) K/uL MPV 10.3 (7.4-10.4) fL Immature Gran % (Auto) 0.2 % Neut % (Auto) 52.5 % Lymph % (Auto) 38.8 % [place] % (Auto) 6.1 % Eos % (Auto) 2.2 % Baso % (Auto) 0.2 % Neut # (Auto) 2.41 (1.4-6.5) K/uL Lymph # (Auto) 1.78 (1.2-3.4) K/uL [place] # (Auto) 0.28 (0.11-0.59) K/uL Eos # (Auto) 0.10 (0-0.5) K/uL Baso # (Auto) 0.01 (0-0.2) K/uL Immature Gran # (Auto) 0.01 (0.00-0.02) K/uL APTT 25.9 (21.0-31.0) Seconds PTT Ratio 1.0 D-Dimer 210 (0-500) ug/L FEU Sodium (136-145) mmol/L Potassium (3.5-5.1) mmol/L Chloride (98-107) mmol/L Carbon Dioxide (21-32) mmol/L Anion Gap (3-11) BUN (7-18) mg/dl Creatinine (0.6-1.4) mg/dl Est Cr Clr Drug Dosing ml/min Est GFR ( Amer) ml/min Est GFR (Non-Af Amer) ml/min BUN/Creatinine Ratio (10-20) Glucose (70-99) mg/dl POC Glucose (70-99) mg/dl Estimat Average Glucose Hemoglobin A1c Calcium (8.5-10.1) mg/dl Magnesium (1.8-2.4) mg/dl Total Bilirubin (0.2-1) mg/dl AST (15-37) U/L ALT (12-78) U/L Alkaline Phosphatase (45-117) U/L Troponin I (0-0.045) ng/ml Total Protein (6.4-8.2) gm/dl Albumin (3.4-5.0) gm/dl Globulin (2.5-4.0) gm/dl Albumin/Globulin Ratio (0.9-2) Triglycerides (0-150) mg/dl Cholesterol (0-200) mg/dl LDL Cholesterol, Calc mg/dl VLDL Cholesterol, Calc mg/dl HDL Cholesterol mg/dl Cholesterol/HDL Ratio Lipase (73-393) U/L COVID-19 Eval Order SARS-CoV-2 (PCR) (Negative) Medications Administered Current Inpatient Medications Acetaminophen (Acetaminophen 325 Mg Tab) 650 mg PO Q4H PRN PRN Reason: Pain or Fever Stop: 11/26/20 20:13 Last Admin: 10/27/20 23:44 Dose: 650 mg Documented by: Allopurinol (Allopurinol 100 Mg Tab) 100 mg PO DAILY PRN PRN Reason: gout Stop: 11/26/20 20:13 Aspirin (Aspirin 81 Mg Ectab) 81 mg PO DAILY [facility] Stop: 11/27/20 08:59 Atorvastatin Calcium (Atorvastatin 40 Mg Tab) 40 mg PO QAM ADRIANA Stop: 11/27/20 08:59 Carvedilol (Carvedilol 12.5 Mg Tab) 12.5 mg PO BID [facility] Stop: 11/27/20 08:59 Heparin Sodium/Dextrose (Heparin Sodium/Dextrose) 25,000 units in 500 mls @ 34 mls/hr IV .[id number] [facility]; Protocol Stop: 11/26/20 21:50 Last Titration: 10/28/20 07:04 Dose: 1,700 units/hr, 34 mls/hr Documented by: Insulin Aspart (Insulin Aspart 100 Units/Ml 3 Ml Pen) 0 units SC ACHS [facility] Stop: 11/26/20 20:59 Last Admin: 10/27/20 20:59 Dose: Not Given Documented by: Labetalol HCl (Labetalol Hcl Iv 5 Mg/Ml 20ml) 10 mg IV Q4H PRN PRN Reason: Hypertension Stop: 11/26/20 20:13 Losartan Potassium (Losartan Potassium 50 Mg Tab) 100 mg PO QAM [facility] Stop: 11/27/20 08:59 Nitroglycerin (Nitroglycerin Sl 0.4 Mg/Tab Tab) 0.4 mg SL UD PRN PRN Reason: Chest Pain Stop: 11/26/20 20:13 Ondansetron HCl (Ondansetron Inj 2 Mg/Ml 2 Ml Vial) 4 mg IV Q6H PRN PRN Reason: Nausea Stop: 11/26/20 20:13
[2020-10-28] MEDS ORDERED: POTASSIUM CHLORIDE CRTAB 20 MEQ TABCR PO STA ×2 (07:09→15:25)
[2020-10-28] MEDS ORDERED: POTASSIUM CHLORIDE / WTR 10 MEQ/100 ML PLCT IV ONE (07:30)
[2020-10-28] MEDS ORDERED: PERFLUTREN LIPID MICROSPHERE (DEFINITY) IV ONE (08:52)
[2020-10-28] MEDS ORDERED: hydroCHLOROthiazide 25 MG TAB PO SCH (09:00)
[2020-10-28] MEDS: LOSARTAN POTASSIUM 50 MG TAB PO SCH (09:25)
[2020-10-28] MEDS: ASPIRIN 81 MG ECTAB PO SCH (09:25)
[2020-10-28] MEDS: carvediloL 12.5 MG TAB PO SCH ×2 (09:25→20:58)
[2020-10-28] MEDS: INSULIN ASPART 100 UNITS/ML 3 ML PEN SC SCH ×4 (09:27→20:52)
[2020-10-28] MEDS: ATORVASTATIN 40 MG TAB PO SCH (09:27)
--- NOTE | 2020-10-28 09:37 | Cardiology Consultation ---
Date of Consultation October 28, 2020 Assessment & Plan (1) NSTEMI (non-ST elevated myocardial infarction): (2) Uncontrolled hypertension: (3) Hyperlipidemia: (1) NSTEMI (non-ST elevated myocardial infarction): -Patient presents with symptoms consistent with exertional angina with elevated troponin I of 1.2 ng/ml. -EKG with chronic age undetermined septal infarct and diffuse T wave inversions consistent with his known history of severe concentric LVH and hypertensive heart disease. EKG abnormal dating back to 2014, although lateral ST depression slightly more prominent. -The EKG is therefore really non diagnostic due to the chronic changes. -on 10/04, SVT noted on presentation, which was either not present at time of this event, or terminated spontaneously prior to presentation. -rather than stress testing, would recommend proceeding to cardiac catheteriz ation to definitively rule in our exclude CAD. - pt agreeable. Continue ASA, heparin infusion, beta melissa, statin. -advance dient. NPO after MN , likely for catheterization tomorrow. -No indication for emergency cardiac catheterization. No ST elevation. No ongoing chest pain. (2) Uncontrolled hypertension: -Pt recently discharge on losartan 100 mg and HCTZ 25 mg. -was NOT discharge on a beta melissa per my review. -Coreg added at time of 10/26 visit, but pt had yet to pick this up. -No SVT on telemetry thus far this admission. -Continue losartan, coreg, Holding HCTZ due to low potassium. Repeat K and troponin at 1400. BP much improved 145/80. Importance of adherence discussed with patient. (3) Hyperlipidemia: -continue atorvastatin 40 mg , LDL 72. History of Present Illness Attending Physician: Femi Boo MD History of Present Illness Jevon Felix is a 60-year-old black male seen in cardiology consultation per the request of Dr. Cortez for the evaluation of chest pain,NSTEMI. The patient has a longstanding history of hypertension with diffuse T wave inversions noted chronically on EKG tracings dating back to 2014 and 2018 as well as age-indeterminate septal infarction pattern in lead V2. An echocardiogram performed in 2015 revealed severe concentric left ventricular hypertrophy which correlated well with the EKG findings. He presented on 10/04/2020 with chief complaint of chest discomfort and diaphoresis with inability to take a deep breath in. He was found to have supraventricular tachycardia at that time with presenting EKG revealing SVT at 150 bpm as well as significant hypertension. The SVT resolved with carotid massage. The patient's troponin I was elevated at that time, peaking at 1.08 NG per mL. The patient was placed back on his antihypertensive treatment. And evaluation to include outpatient nuclear stress test was tentatively in process. At the time of his outpatient cardiology follow-up just 2 days ago on 10/26/2020 he had felt relatively well. Blood pressure however was above goal still at 162/98. The patient presents again with chest pain, diaphoresis. 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 He noted onset of chest discomfort , heavy perspiration, and shortness of breath. He took his BP medications at 11 am. His symptoms resolved prior to arrival to the ED. No tachycardia noted at time of presentation. His initial troponin I was 0.469, and has increased to 1.21 NG per mL this morning. EKG reveals chronic age-indeterminate septal infarction pattern in lead V2, diffuse deep T wave inversions unchanged compared to his previous EKGs from his recent admission as well as chronically as an outpatient, with perhaps slightly more prominent ST depression in the lateral precordial leads. 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 Allergies Allergy/AdvReac Type Severity Reaction Status Date / Time Sulfa (Sulfonamide Allergy Unknown Unknown Verified 10/04/20 17:23 Antibiotics) metoprolol AdvReac erectile Verified 10/04/20 16:28 dysfunction nifedipine AdvReac airway Verified 10/04/20 16:27 edema Home Medications Medication Instructions Recorded Confirmed Type allopurinol 100 mg PO DAILY PRN 10/04/20 10/27/20 History aspirin [Aspirin Low Dose] 81 mg PO DAILY 10/04/20 10/27/20 History glyburide 5 mg PO BID 10/04/20 10/27/20 History Oxygen Home #1 ea 10/06/20 Rx hydrochlorothiazide 25 mg PO QAM #30 tab 10/06/20 10/27/20 Rx losartan 100 mg PO QAM #60 tab 10/06/20 10/27/20 Rx carvedilol 12.5 mg PO BID 10/27/20 10/27/20 History tadalafil 5 mg PO DAILY PRN MDD 1 10/27/20 10/27/20 History Patient History Medical History Diabetes mellitus, type II History of blood in urine HTN (hypertension) Hyperlipidemia Obesity Surgical History History of eye removal Family History Father Hypertension Mother Hypertension Social History Smoking Status: Never smoker Second Hand Exposure: No; Hx Alcohol Use: No Hx Substance Use: No Preferred Language: [place] Communication Ability: Effective Computer Field Technician Required: No Beliefs That Will Affect Care: None marital status: Current Living Situation: Spouse Other Information That Helps Us Care for You: No Feels Safe at Home: Yes Safety Concerns: Feels Safe At This Time Assistive Devices: Glasses Review of Systems Review of Systems: All systems reviewed & are unremarkable except as noted in HPI & below Physical Exam Physical Exam: Temp Pulse Resp BP Pulse Ox 36.8 C 75 17 145/80 H 98 10/28/20 07:07 10/28/20 08:00 10/28/20 07:07 10/28/20 07:07 10/28/20 07:07 Constitutional: WD/WN, vitals as above Respiratory: normal respiratory effort, lungs clear to auscultation Cardiovascular: RRR, no murmur, no edema Gastrointestinal (Abdomen): normal bowel sounds, soft, nontender, no hepatosplenomegaly Neurologic: PERRL, EOMI, accommodation nl, no face palsy, no dysarthria Results & Data ([facility]) Vital Signs (Past 12 Hours) Vital Signs Temp Pulse Pulse Resp BP Pulse Ox 10/28/20 07:07 36.8 C 87 17 145/80 H 98 10/28/20 02:45 36.6 C 84 18 159/81 H 95 10/27/20 23:34 36.6 C 77 19 125/70 98 10/27/20 23:10 75 Laboratory Results Cardiac Enzymes 10/27/20 10/27/20 10/27/20 Range/Units 12:45 13:30 15:00 AST 45 H (15-37) U/L Troponin I 0.469 H* 0.551 H* (0-0.045) ng/ml 10/27/20 10/28/20 Range/Units 20:48 04:09 AST (15-37) U/L Troponin I 0.968 H* 1.210 H* (0-0.045) ng/ml Coagulation 10/27/20 10/28/20 Range/Units 12:45 04:09 APTT 25.9 53.2 H* (21.0-31.0) Seconds Lipids 10/28/20 Range/Units 04:09 Triglycerides 214 H (0-150) mg/dl Cholesterol 150 (0-200) mg/dl HDL Cholesterol 35 mg/dl Cholesterol/HDL Ratio 4 CBC 10/27/20 10/28/20 Range/Units 12:45 04:09 WBC 4.59 L 7.87 (4.8-10.8) K/uL RBC 5.43 5.06 (4.7-6.1) M/uL Hgb 16.0 14.5 (14.0-18.0) g/dL Hct 48.0 43.8 (42-52) % Plt Count 243 212 (130-400) K/uL Neut # (Auto) 2.41 3.55 (1.4-6.5) K/uL Lymph # (Auto) 1.78 3.46 H (1.2-3.4) K/uL [place] # (Auto) 0.28 0.59 (0.11-0.59) K/uL Eos # (Auto) 0.10 0.24 (0-0.5) K/uL Baso # (Auto) 0.01 0.01 (0-0.2) K/uL Comprehensive Metabolic Panel 10/27/20 10/27/20 10/28/20 Range/Units 12:45 13:30 04:09 Sodium 138 139 (136-145) mmol/L Potassium 3.5 3.2 L (3.5-5.1) mmol/L Chloride 107 107 (98-107) mmol/L Carbon Dioxide 25 28 (21-32) mmol/L BUN 19 H 23 H (7-18) mg/dl Creatinine 1.02 1.06 (0.6-1.4) mg/dl Glucose 119 H 169 H (70-99) mg/dl Calcium 9.0 8.5 (8.5-10.1) mg/dl AST 45 H (15-37) U/L ALT 79 H (12-78) U/L Alkaline Phosphatase 64 (45-117) U/L Total Protein 8.3 H (6.4-8.2) gm/dl Albumin 3.5 (3.4-5.0) gm/dl Intake and Output 10/27/20 10/28/20 10/28/20 22:59 06:59 14:59 Intake Total 250 / 480.067 230.067 / 480.067 76.5 / 76.5 Output Total 200 / 200 Balance 250 / 280.067 30.067 / 280.067 76.5 / 76.5 Intake: IV 230.067 / 230.067 76.5 / 76.5 Heparin Sodium/Dextrose 25,000 230.067 / 230.067 76.5 / 76.5 units In 500 ml @ 1,700 UNITS/ HR 34 mls/hr IV .[id number] [facility] Rx #:[id number] Oral 250 / 250 Output: Urine 200 / 200 Other: Other Intake Source NPO # Unmeasured Voids 1 1 Weight 125.8 kg Weight Measurement Method Standing Scale
[2020-10-28] MEDS: HEPARIN SODIUM/DEXTROSE 25,000 UNITS/500 ML BAG IV SCH (12:09)
[2020-10-28 14:46] LABS: BUN Creatinine Ratio 15.8 (10-20); Calcium 8.8 mg/dl (8.5-10.1); Creatinine Clr Calc Pharmacy 90.6 ml/min; Est GFR (African American) 76.8 ml/min; Est GFR (Non-African American) 66.3 ml/min; Potassium 3.6 mmol/L (3.5-5.1)
--- NOTE | 2020-10-28 15:07 | Communication Note ---
Date of Service: October 28, 2020 Follow-up blood work reviewed, drawn at 14: 21 Troponin trended down to 0.981. Potassium normal 3.6. Add spironolactone 25 mg p.o. daily for additional blood pressure control, most recent measurement 154/108. Keep n.p.o. after midnight, possible cardiac catheterization tomorrow.
[2020-10-28] MEDS: SPIRONOLACTONE 25 MG TAB PO SCH (16:06)
--- NOTE | 2020-10-28 23:26 | Electrocardiogram Report ---
Test Reason : Blood Pressure : / mmHG Vent. Rate : 083 BPM Atrial Rate : 083 BPM P-R Int : 234 ms QRS Dur : 110 ms QT Int : 412 ms P-R-T Axes : 065 067 213 degrees QTc Int : 484 ms Sinus rhythm with 1st degree A-V block Possible Left atrial enlargement Prolonged QT Abnormal ECG When compared with ECG of 27-OCT-2020 12:11, No significant change was found Confirmed by Travis Manuel ([id number]) on 10/28/2020 11:26:12 PM Referred By: REFERRED SELF Confirmed By:Travis Manuel
[2020-10-29] MEDS: HEPARIN SODIUM/DEXTROSE 25,000 UNITS/500 ML BAG IV SCH (02:23)
[2020-10-29] MEDS ORDERED: Nursing to Pharmacy Communication SCH ×2 (04:00→13:00)
[2020-10-29] MEDS: INSULIN ASPART 100 UNITS/ML 3 ML PEN SC SCH ×4 (06:05→20:37)
[2020-10-29 06:31] LABS: Hematocrit (blood only) 46.3 % (42-52); Hemoglobin 15.2 g/dL (14.0-18.0); Mean Corpuscular Hemoglobin 28.9 pg (25-34); Mean Corpuscular Hgb Conc 32.8 g/dL (32-36); Mean Platelet Volume 10.1 fL (7.4-10.4); Platelet Count 223 K/uL (130-400); RDW Coefficient of Variation 14.1 % (11.5-14.5); RDW Standard Deviation 45.8 fL (36.4-46.3); Red Blood Count 5.26 M/uL (4.7-6.1); White Blood Count 7.05 K/uL (4.8-10.8)
[2020-10-29 06:55] LABS: Partial Thromboplastin Ratio 3.2
[2020-10-29 07:04] LABS: Calcium 8.7 mg/dl (8.5-10.1); Creatinine Clr Calc Pharmacy 104.8 ml/min; Est GFR (African American) 91.3 ml/min; Est GFR (Non-African American) 78.8 ml/min; Magnesium 2.3 mg/dl (1.8-2.4)
[2020-10-29 07:05] LABS: Phosphorus 2.8 mg/dl (2.5-4.9)
[2020-10-29 07:07] LABS: Partial Thromboplastin Time 84.7 Seconds (21.0-31.0)
[2020-10-29 07:29] LABS: Estimated Average Glucose 166 mg/dl; Hemoglobin A1C 7.4 % (4.5-5.6)
[2020-10-29] MEDS: ASPIRIN 81 MG ECTAB PO SCH (08:32)
[2020-10-29] MEDS: ATORVASTATIN 40 MG TAB PO SCH (08:32)
[2020-10-29] MEDS: allopurinoL 100 MG TAB PO PRN (08:32)
[2020-10-29] MEDS: carvediloL 12.5 MG TAB PO SCH ×2 (08:32→20:07)
[2020-10-29] MEDS: LOSARTAN POTASSIUM 50 MG TAB PO SCH (08:32)
[2020-10-29] MEDS: SPIRONOLACTONE 25 MG TAB PO SCH (08:34)
[2020-10-29] MEDS ORDERED: niCARdipine HCL INJ 2.5 MG/ML 10 ML AMP ONE (10:24)
[2020-10-29] MEDS ORDERED: NITROGLYCERIN/D5W 100MCG/ML 20ML SYR ONE (10:25)
--- NOTE | 2020-10-29 10:43 | Pre Anesthesia Assessment ---
Date of Service October 29, 2020 Pre Sedation Assessment Vital Signs Temp Pulse Pulse Resp BP BP Pulse Ox 10/29/20 10:36 78 10/29/20 10:30 80 20 202/134 H 98 10/29/20 08:13 98.2 F 77 18 171/123 H 98 10/29/20 03:16 98.1 F 75 18 151/100 H 99 10/29/20 00:12 93 H 10/28/20 22:46 98.2 F 84 18 173/98 H 93 10/28/20 20:57 98.4 F 84 19 150/87 H 98 10/28/20 16:22 80 10/28/20 15:26 98.4 F 80 18 164/111 H 97 10/28/20 11:14 98.4 F 86 18 154/108 H 96 Cardiovascular RRR, no murmur, no edema Respiratory normal respiratory effort, lungs clear to auscultation Pre-Sedation Airway Assessment Smoking Status: Never smoker Hx Sleep Apnea: No Hx Difficult Intubation: No Short, Thick Neck: Yes Thyromental Distance: < 3.5 Finger Breadths Oral Cavity: + WNL Mallampati Class: II ASA: ASA3 NPO Status Date of Last Intake of Fluids: 10/28/20 Date of Last Intake of Solid Food: 10/28/20 Procedure Planning Contraindications for Sedation: none Current Medications Reviewed: Yes Notes The planned sedation has been discussed with the patient. Informed Consent was obtained. I have identified the patient, determined the appropriateness of sedation and have assessed the patient immediately prior to the procedure. All medicine(s) and interventions are by my order.
[2020-10-29] MEDS ORDERED: MIDAZOLAM HCL 1 MG/ML 2ML VIAL ONE (10:48)
[2020-10-29] MEDS ORDERED: HEPARIN (PORCINE) 1000 UNIT/ML 10 ML (CATH LAB USE ONLY) ONE (10:48)
[2020-10-29] MEDS ORDERED: fentaNYL citrate 100 MCG/2 ML VIAL ONE (10:49)
[2020-10-29] MEDS ORDERED: hydrALAZINE HCL 20 MG/ML VIAL ONE (11:45)
--- NOTE | 2020-10-29 12:00 | Post Anesthesia Assessment ---
Date of Service October 29, 2020 Post Sedation Assessment Vital Signs Temp Pulse Pulse Resp BP BP Pulse Ox 10/29/20 10:36 78 10/29/20 10:30 80 20 202/134 H 98 10/29/20 08:13 98.2 F 77 18 171/123 H 98 10/29/20 03:16 98.1 F 75 18 151/100 H 99 10/29/20 00:12 93 H 10/28/20 22:46 98.2 F 84 18 173/98 H 93 10/28/20 20:57 98.4 F 84 19 150/87 H 98 10/28/20 16:22 80 10/28/20 15:26 98.4 F 80 18 164/111 H 97 Recovery Score Activity: Moves 4 extremities Respiration: Deep Breath/Cough Circulation: +/-20% PreAnes Value Consciousness: Fully Awake Oxygen Saturation: O2 needed for >90% Discharge Sedation Level of Care: Fast Track Phase II Post Sedation Plan On clinical assessment, the patient appears to have tolerated the sedation without complications. Patient is recovering as anticipated. Patient will continue to be monitored by nursing and may be discharged when sedation discharge criteria are met per below protocol. Upon Completions of procedure up to 15 minutes continue every 5 minute vital signs and the P.A.R. score; then discharge to a Phase I or Fast Track to Phase II per the following guidelines: * Discharge Patient to appropriate Phase II area if PAR is 8 or greater or return to pre- procedure baseline. The post - procedure orders will be as directed. * If PAR score is less than 8 or not return to pre-procedure baseline then patient will follow Phase I monitoring till PAR is reached for Phase II. The Phase I may be done in procedure room or may call to secure a Phase I area. * If naloxone or flumazenil are used for reversal, hold in Phase I for continued monitoring from when last reversal dose was given for a minimum of 60 minutes or longer pending the nurse and/or physician discretion of patient condition before discharge to Phase II. Please call the Sedation Physician to re-evaluate and complete post-note for discharge to Phase II area. Do NOT discharge from procedure sedation or Phase 1 until post- sedation evaluation note is complete by procedure /sedation MD Sedation Discharge Instructions to be given to the patient at discharge to home.
--- NOTE | 2020-10-29 12:09 | Cardiac Catheterization ---
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 Cardiac Status Clinical evaluation leading to the procedure CAD Presenation: Non STEMI Anginal Classification: CCS III Heart Failure: No Cardiogenic Shock within 24 Hours: No Cardiac Arrest within 24 Hours: No Imaging Studies Past 6 Months: Yes Stress Studies Past 6 Months: No Diagnostic Physicians Name: Ricardo Park MD Status: Elective Closure Device Percutaneous Entry Location: Radial Closure Device: Radial Band Recommendations: Medical Therapy and/or Counseling Intraprocedure Events Significant Disection: No Perforation: No Cardiac Cath Procedure Full Procedure Date October 29, 2020 Pre-Procedure Diagnosis Pre-Procedure Diagnosis: Non STEMI AUC Score AUC Score: 7 Post-Procedure Diagnosis Post-Procedure Diagnosis: Mild CAD and Normal Intracardiac Pressures Procedure(s) Performed Procedure(s) Performed: Coronary Angiography, Left Heart Cath and Ultrasound Guided Vascular Access Financial Planning Adviser Ricardo Park MD Welder/Fabricator(s) [place] Estimated Blood Loss Estimated Blood Loss: 10 Medication(s) Medication(s): Fentanyl, Heparin, Lidocaine 1%, Nicardipine, Nitroglycerin and Versed Summary of Findings Indication: NSTEMI, severe concentric LVH, poorly controlled hypertension Access: 6 Fr right radial artery, 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 Left main large vessel without significant disease LAD -medium caliber vessel, mid segment luminal regularities, distal vessel wraps around apex. Large D2 without significant disease Circumflex -nondominant, high OM1 large caliber vessel without significant disease. Medium caliber AV groove circumflex without significant disease. RCA -dominant, large caliber vessel, no significant disease LVEDP -13 Arterial Closure: TR band, Angio-Seal Summary: 1. 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 2. Minimal nonobstructive coronary artery disease -Mid LAD luminal irregularities 3. Normal intracardiac filling pressure Recommendations: Continued blood pressure control and ASCVD risk factor modification per Dr. Bernal. Consider further evaluation of anomalous left main course with CTA Hemodynamics Rest Ao:: 173/118/144 Final Ao: 167/13 LV: 178/114/142 Recommendations Recommendations: Medical Therapy and/or Counseling Specimens Specimens: None Radiation Exposure (mGy) 2375 Contrast (mls) 120 Fluids (cc crystalloids) Fluids (cc crystalloids): 100 Drains Drains: None Anesthesia Moderate Procedural Complication(s) None Disposition PCU I attest to the content of the Intraoperative Record and any orders documented therein. Any exceptions are noted below. [facility] Card Cath Procedure Codes Cardiac Catheterization Procedure 1: Cardiovascular Cath Procedures: 78059 Coronaries and LHC (+/-LV) Therapeutic Services & Ancillary Proc Procedure 1: Cardiovascular Tx and Anc Procedures: 81743 Ultrasonic Guidance Vascular Access Moderate Sedation Procedure 1: Sedation/Anesthesia: 81126 Mod Sedation by the same physician;Init15 Min Child Age 5 & Up Procedure 2: Sedation/Anesthesia: 50663 Mod Sedation by the same physician; Ea Add Minutes PG Care Time/CCT Total # of Minutes Spent Total Time Spent with Patient: Total time spent is greater than 50% in coordination of care (as documented) at patient's floor/unit and/or counseling patient:
[2020-10-29] MEDS ORDERED: SODIUM CHLORIDE 0.9% 500 ML IV SCH (12:15)
--- NOTE | 2020-10-29 14:31 | Electrocardiogram Report ---
Test Reason : Blood Pressure : / mmHG Vent. Rate : 074 BPM Atrial Rate : 074 BPM P-R Int : 236 ms QRS Dur : 106 ms QT Int : 408 ms P-R-T Axes : 060 054 196 degrees QTc Int : 452 ms Sinus rhythm with 1st degree A-V block Septal infarct , age undetermined T wave abnormality, consider inferolateral ischemia Abnormal ECG When compared with ECG of 28-OCT-2020 05:01, No significant change was found Confirmed by Alonso Meza ([id number]) on 10/29/2020 2:31:03 PM Referred By: REFERRED SELF Confirmed By:Alonso Meza
--- NOTE | 2020-10-29 15:23 | Hospitalist Progress Note ---
Date of Service October 29, 2020 Assessment & Plan (1) NSTEMI (non-ST elevated myocardial infarction): (2) Chest pain: (3) Elevated troponin: (4) Uncontrolled hypertension: This 60-year-old presents with chest discomfort. 1. NSTEMI Appreciate cardiology input. Patient remains NPO. Plan for cardiac catheterization today. Continue with heparin for now. EKG with chronic age undetermined septal infarct and diffuse T wave inversions c/w his known hx of severe concentric LVH and hypertensive heart disease. The EKG is therefore really non diagnostic due to the chronic changes. Echocardiogram obtained - there is severe concentric LVH. No regional wall motion abnormalities noted. LV systolic function is normal. The LVEF 65 to 70% there is no significant valvular heart disease. The aortic root diameter is normal. The proximal ascending aorta is not visualized well enough to allow measurement. 2. History of paroxysmal supraventricular tachycardia Continue with Coreg. 3. Hypertension, uncontrolled. Crrenty remains on losartain, coreg, aldacone and cardizem. Labetalol PRN. 4. Hyperlipidemia, continue atorvastatin, LDL 72 5. Hypokalemia resolved 6. History of diabetes. Hold his glyburide. Place on insulin sliding scale. Follow hemoglobin A1c level, follow the blood sugars. 7. Obesity, needs counseling. 8. Sleep apnea, on CPAP at bedtime. DVT prophylaxis: SCDs, IV heparin Disposition: Monitor on the telemetry. Admission and Anticipated Discharge Date Admission Date: October 27, 2020 Subjective Patient is doing okay. Denies any chest pain, shortness of breath, palpitations or any dizziness. Appears a bit anxious about the catheterization. Rest of the review of system is negative. Review of Systems Review of Systems: All systems reviewed & are unremarkable except as noted in HPI & below Physical Exam Physical Exam: General: A&Ox3 HENT: NCAT, MMM, EOMI Eyes: PERRLA Neck: Supple, normal range of motion CVS: normal rate and rhythm Resp: b/l good breath sounds Abdomen: Soft, ND/NT, +BS Extremities: No c/c/e Neuro: face symmetric, strength grossly equal, no focal deficit Skin: warm and dry, no rashes/lesions/errythema MSK: normal ROM, no joint swelling/erythema Results & Data Results & Data ([facility]) Vital Signs (Past 12 Hours) Vital Signs Temp Pulse Pulse Pulse Resp BP BP 10/29/20 15:08 79 10/29/20 14:57 85 18 155/101 H 10/29/20 13:57 36.4 C L 73 18 147/85 H 10/29/20 13:27 79 18 146/94 H 10/29/20 12:57 79 18 151/124 H 10/29/20 12:42 79 18 137/89 10/29/20 12:34 75 10/29/20 12:27 36.5 C 67 18 111/74 10/29/20 12:15 62 20 102/75 10/29/20 12:00 70 20 143/95 H 10/29/20 10:36 78 10/29/20 10:30 80 20 202/134 H 10/29/20 08:13 36.8 C 77 18 171/123 H Pulse Ox 10/29/20 15:08 10/29/20 14:57 98 10/29/20 13:57 98 10/29/20 13:27 95 10/29/20 12:57 95 10/29/20 12:42 98 10/29/20 12:34 10/29/20 12:27 96 10/29/20 12:15 96 10/29/20 12:00 96 10/29/20 10:36 10/29/20 10:30 98 10/29/20 08:13 98
--- NOTE | 2020-10-29 16:29 | Cardiology Progress Note ---
Date of Service October 29, 2020 Assessment & Plan (1) NSTEMI (non-ST elevated myocardial infarction): (2) Uncontrolled hypertension: (3) Hyperlipidemia: (1) NSTEMI (non-ST elevated myocardial infarction): -Patient presents with symptoms consistent with exertional angina with elevated troponin I of 1.2 ng/ml. -EKG with chronic age undetermined septal infarct and diffuse T wave inversions consistent with his known history of severe concentric LVH and hypertensive h eart disease. EKG abnormal dating back to 2014, although lateral ST depression slightly more prominent. -The EKG is therefore really non diagnostic due to the chronic changes. -on 10/04, SVT noted on presentation, which was either not present at time of this event, or terminated spontaneously prior to presentation. 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 Current recommendations are for antihypertensive therapy with beta-blockade and calcium channel melissa. To this end, we will increase his carvedilol to 25 mg p.o. twice daily. He does have a chart allergy to nifedipine and upon direct questioning the patient he states that he believes it caused a headache in the past. We will give diltiazem 30 mg p.o. every 8 hours now and likely transition to extended release in the a.m. These above changes should also be beneficial and preventing further episodes of SVT. We will arrange for outpatient coronary CTA to further delineate anatomy, stress testing is not necessary. (2) Uncontrolled hypertension: -Pt recently discharge on losartan 100 mg and HCTZ 25 mg. -Continue losartan Increase carvedilol to 25 mg twice daily Holding HCTZ due to low potassium. We will follow pressures overnight. (3) Hyperlipidemia: -continue atorvastatin 40 mg , LDL 72. Admission and Anticipated Discharge Date Admission Date: October 27, 2020 Subjective Patient seen and examined, chart reviewed. Patient seen status post cardiac catheterization with present at bedside. Currently states he feels well and denies chest pain, shortness of breath, palpitations, lightheadedness, dizziness or syncope. Telemetry reviewed: Normal sinus rhythm without arrhythmia. Review of Systems Review of Systems: All systems reviewed & are unremarkable except as noted in HPI & below Physical Exam Physical Exam: General: Awake, alert and oriented x 3. No acute distress. HEENT: Normocephalic, atraumatic. Pupils equal, round and reactive to light and accommodation. Extraocular muscles are intact. Anicteric sclera. Moist mucous membranes. Neck: No JVD. No bruit. Cardiovascular: Regular. Positive S-4. Normal S-1 and S-2. No S-3. No murmurs or rubs. Pulmonary: Clear to auscultation B/L. No rales, rhonchi or wheezing Abdomen: Bowel sounds x 4, soft. No rebound, guarding or tenderness. No organomegaly. Extremities: No clubbing, cyanosis or edema. +2 pedal pulses bilaterally. Skin: Warm and dry. Results & Data ([facility]) Vital Signs (Past 12 Hours) Vital Signs Temp Pulse Pulse Pulse Resp BP BP 10/29/20 15:08 79 10/29/20 14:57 85 18 155/101 H 10/29/20 13:57 36.4 C L 73 18 147/85 H 10/29/20 13:27 79 18 146/94 H 10/29/20 12:57 79 18 151/124 H 10/29/20 12:42 79 18 137/89 10/29/20 12:34 75 10/29/20 12:27 36.5 C 67 18 111/74 10/29/20 12:15 62 20 102/75 10/29/20 12:00 70 20 143/95 H 10/29/20 10:36 78 10/29/20 10:30 80 20 202/134 H 10/29/20 08:13 36.8 C 77 18 171/123 H Pulse Ox 10/29/20 15:08 10/29/20 14:57 98 10/29/20 13:57 98 10/29/20 13:27 95 10/29/20 12:57 95 10/29/20 12:42 98 10/29/20 12:34 10/29/20 12:27 96 10/29/20 12:15 96 10/29/20 12:00 96 10/29/20 10:36 10/29/20 10:30 98 10/29/20 08:13 98
[2020-10-29] MEDS: dilTIAZem HCL 30 MG TAB PO SCH ×2 (16:38→20:06)
[2020-10-29] MEDS: ACETAMINOPHEN 325 MG TAB PO PRN (23:26)
[2020-10-30 06:48] LABS: Hematocrit (blood only) 43.8 % (42-52); Hemoglobin 14.5 g/dL (14.0-18.0); Mean Corpuscular Hemoglobin 28.9 pg (25-34); Mean Corpuscular Hgb Conc 33.1 g/dL (32-36); Mean Corpuscular Volume 87.3 fL (80-100); Mean Platelet Volume 9.9 fL (7.4-10.4); Platelet Count 202 K/uL (130-400); RDW Coefficient of Variation 14.3 % (11.5-14.5); RDW Standard Deviation 45.8 fL (36.4-46.3); Red Blood Count 5.02 M/uL (4.7-6.1); White Blood Count 7.45 K/uL (4.8-10.8)
[2020-10-30 07:17] LABS: BUN Creatinine Ratio 20.4 (10-20); Calcium 8.3 mg/dl (8.5-10.1); Creatinine Clr Calc Pharmacy 116.6 ml/min; Est GFR (African American) 103.2 ml/min
[2020-10-30] MEDS ORDERED: hydroCHLOROthiazide 25 MG TAB PO SCH (09:00)
[2020-10-30] MEDS ORDERED: dilTIAZem HCL 120 MG CAPCR PO SCH (09:00)
[2020-10-30] MEDS ORDERED: carvediloL 25 MG TAB PO SCH (09:00)
[2020-10-30] MEDS: INSULIN ASPART 100 UNITS/ML 3 ML PEN SC SCH ×2 (09:17→11:50)
[2020-10-30] MEDS: SPIRONOLACTONE 25 MG TAB PO SCH (09:18)
[2020-10-30] MEDS: ATORVASTATIN 40 MG TAB PO SCH (09:18)
[2020-10-30] MEDS: allopurinoL 100 MG TAB PO PRN (09:18)
[2020-10-30] MEDS: LOSARTAN POTASSIUM 50 MG TAB PO SCH (09:18)
[2020-10-30] MEDS: ASPIRIN 81 MG ECTAB PO SCH (09:18)
--- NOTE | 2020-10-30 13:36 | Cardiology Progress Note ---
Date of Service October 30, 2020 Assessment & Plan (1) NSTEMI (non-ST elevated myocardial infarction): (2) Uncontrolled hypertension: (3) Hyperlipidemia: (1) NSTEMI (non-ST elevated myocardial infarction): -Patient presents with symptoms consistent with exertional angina with elevated troponin I of 1.2 ng/ml. -EKG with chronic age undetermined septal infarct and diffuse T wave inversions consistent with his known history of severe concentric LVH and hypertensive h eart disease. EKG abnormal dating back to 2014, although lateral ST depression slightly more prominent. -The EKG is therefore really non diagnostic due to the chronic changes. -on 10/04, SVT noted on presentation, which was either not present at time of this event, or terminated spontaneously prior to presentation. 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 Current recommendations are for antihypertensive therapy with beta-blockade and calcium channel melissa. To this end, we will increase his carvedilol to 25 mg p.o. twice daily. He does have a chart allergy to nifedipine and upon direct questioning the patient he states that he believes it caused a headache in the past. Mild headache with Cardizem. We will start Cardizem CD 120 mg daily and patient counseled on the use of Tylenol as needed for headache. These above changes should also be beneficial and preventing further episodes of SVT. We will arrange for outpatient coronary CTA to further delineate anatomy, stress testing is not necessary. My office will call to arrange close follow-up in the next week Continue aspirin and atorvastatin. (2) Uncontrolled hypertension: Remained elevated this a.m. Now well controlled with: Carvedilol 25 mg p.o. twice daily HCTZ 25 mg p.o. daily Losartan 100 mg p.o. daily Spironolactone 25 mg daily Did have some hypokalemia prior to being started on spironolactone, now controlled. Repeat BMP as an outpatient in 1 week. Okay to DC to home from a cardiac standpoint. (3) Hyperlipidemia: -continue atorvastatin 40 mg , LDL 72. Admission and Anticipated Discharge Date Admission Date: October 27, 2020 Subjective Patient seen and examined, chart reviewed. Case discussed with nursing. Patient states he is feeling much better today. Notes that his mind is at ease after finding a diagnosis on catheterization. Some slight headache yesterday with the addition of diltiazem but otherwise feeling well. Denies chest pain, shortness of breath, palpitations, lightheadedness, dizziness or syncope. Telemetry reviewed: Normal sinus rhythm without arrhythmia or significant ectopy. Review of Systems Review of Systems: All systems reviewed & are unremarkable except as noted in HPI & below Physical Exam Physical Exam: General: Awake, alert and oriented x 3. No acute distress. HEENT: Normocephalic, atraumatic. Pupils equal, round and reactive to light and accommodation. Extraocular muscles are intact. Anicteric sclera. Moist mucous membranes. Neck: No JVD. No bruit. Cardiovascular: Regular. Positive S-4. Normal S-1 and S-2. No S-3. No murmurs or rubs. Pulmonary: Clear to auscultation B/L. No rales, rhonchi or wheezing Abdomen: Bowel sounds x 4, soft. No rebound, guarding or tenderness. No organomegaly. Extremities: No clubbing, cyanosis or edema. +2 pedal pulses bilaterally. Skin: Warm and dry. Results & Data ([facility]) Vital Signs (Past 12 Hours) Vital Signs Temp Pulse Resp BP Pulse Ox 10/30/20 11:48 36.5 C 88 18 134/79 99 10/30/20 07:56 36.8 C 77 18 158/106 H 97 10/30/20 03:31 36.7 C 71 18 129/64 98
--- NOTE | 2020-10-30 13:39 | Discharge Summary ---
Date of Service October 30, 2020 Admission HPI Per Admitting Provider This is a 60-year-old male with past medical history significant for type 2 diabetes, hyperlipidemia, hyperuricemia, obstructive sleep apnea, history of paroxysmal supraventricular tachycardia, hypertension, obesity, BPH, blind in the left eye, presents with chest pain. The patient says he was at work when he had a couple of minutes of shortness of breath and profuse sweating. He went home and when at home, he had some mild left-sided chest discomfort, he came to the ER. By the time he came to the ER, the chest pain resolved. He is feeling fine. In the ER, he was given aspirin. His blood pressure was high. He saw his choral director recently and was prescribed Coreg but has not filled the medication yet. In the ER, the patient was given Coreg .As per the [facility] cardiology notes, there is a plan for nuclear stress test. Currently, patient is resting comfortably and hemodynamically stable. Some mild headache. Denies any blurred vision, no earache, no runny nose, no sore throat, no cough, no fever, no chills. Appetite is okay. Currently chest pain , no shortness of breath, no nausea, no abdominal pain. Normal bowel and bladder movements. No swelling in the legs.Otherwise ambulates okay. Admission Exam Per Admitting Provider GENERAL: The patient is morbidly obese, not in acute distress. VITAL SIGNS: Temperature 36.8, pulse 82, respiratory rate 19, blood pressure 151/91, oxygen 95% on room air. HEENT: Atraumatic. Oral mucosa moist. NECK: No JVD. No neck masses. CARDIOVASCULAR: S1, S2 heard, regular rate and rhythm, no murmur, no gallop. RESPIRATORY SYSTEM: Normal AP diameter. No accessory muscle use. No wheezing, no crackles. ABDOMEN: Soft, bowel sounds present, nontender. No distention. CENTRAL NERVOUS SYSTEM: Cranial nerves II-XII grossly intact. Nonfocal. EXTREMITIES: No edema, no erythema. Principal Diagnosis NSTEMI Hypertensive Urgency Discharge Exam General: A&Ox3 HENT: NCAT, MMM, EOMI Eyes: PERRLA Neck: Supple, normal range of motion CVS: normal rate and rhythm Resp: b/l good breath sounds Abdomen: Soft, ND/NT, +BS Extremities: No c/c/e Neuro: face symmetric, strength grossly equal, no focal deficit Skin: warm and dry, no rashes/lesions/errythema MSK: normal ROM, no joint swelling/erythema Discharge Data Allergies Allergy/AdvReac Type Severity Reaction Status Date / Time Sulfa (Sulfonamide Allergy Unknown Unknown Verified 10/04/20 17:23 Antibiotics) metoprolol AdvReac erectile Verified 10/04/20 16:28 dysfunction nifedipine AdvReac airway Verified 10/04/20 16:27 edema Consultations 10/27/20 17:05 ED Decision to Admit Stat 10/28/20 08:00 Consult Cardiology Routine Procedures Performed Operation Date: 10/29/20 10:30 Actual Procedures p Cath, Left with Cors and Vent - Vitaliy Park MD s Cineradiography w/Routine Exam - Vitaliy Park MD s Ultrasound Vascular Access - Vitaliy Park MD Ordered Studies 10/29/20 10:12 CL Cath Imgs for PACS use only Routine Hospital Course (1) NSTEMI (non-ST elevated myocardial infarction): (2) Chest pain: (3) Elevated troponin: (4) Uncontrolled hypertension: This 60-year-old presents with chest discomfort. 1. NSTEMI H/O SVT EKG with chronic age undetermined septal infarct and diffuse T wave inversions c/w his known hx of severe concentric LVH and hypertensive heart disease. The EKG is therefore really non diagnostic due to the chronic changes. Echocardiogram obtained - there is severe concentric LVH. No regional wall motion abnormalities noted. LV systolic function is normal. The LVEF 65 to 70% there is no significant valvular heart disease. The aortic root diameter is normal. The proximal ascending aorta is not visualized well enough to allow measurement. 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 Patient will follow up with cardiology as an outpatient for coronary CTA. The day of discharge patient was doing okay. He did not have any major complaints denies any chest pain or shortness of breath. Hemodynamically patient was doing better. Patient was discharged in stable condition. 2. History of paroxysmal supraventricular tachycardia Continue with Coreg. 3. Hypertension, uncontrolled. Patient was discharged on losartan 100 mg daily, spironolactone 25 mg daily, Coreg 25 mg twice daily and diltiazem 125 mg daily along with hydrochlorothiazide 25 mg daily. 4. Hyperlipidemia, continue atorvastatin, LDL 72 5. Hypokalemia resolved 6. History of diabetes. 7. Obesity, needs counseling. 8. Sleep apnea, on CPAP at bedtime. Total Time Total Time Spent Total Time Spent (In Minutes): 35 Discharge Plan Discharge Items Patient Disposition: Home - Self-Care Reason For Visit: CHEST PAIN Discharge Diagnosis: NSTEMI Hypertensive urgency Activity: Resume your previous activity Non-emergency contact: Primary Care Provider Call non-emergency contact if: your pain is not controlled Follow-up/Referrals: Jordi Silveira MD [Primary Care Provider] - 11/06/20 11:00 am (Date & Time 11/06/2020 11:00 AM Provider Galileo Camejo [facility] ) Diet: Heart Healthy Addtl Attending Provider Instructions: Follow-up with your primary care physician and choral director as an outpatient. Pending Studies at Discharge: No Stand-Alone Forms: My [facility] [employer], Smoking Cessation Medications and DC Order Prescriptions: New carvedilol 25 mg Tablet 25 mg PO BID 30 Days Qty: 60 RF: 0 atorvastatin 40 mg Tablet 40 mg PO QAM Qty: 30 RF: 0 spironolactone 25 mg Tablet 25 mg PO QAM Qty: 30 RF: 0 diltiazem HCl 120 mg capsule,extended release 12 hr 120 mg PO DAILY Qty: 30 RF: 0 Continued glyburide 5 mg tablet 5 mg PO BID RF: 0 aspirin [Aspirin Low Dose] 81 mg Tablet,Delayed Release (Dr/Ec) 81 mg PO DAILY RF: 0 allopurinol 100 mg Tablet 100 mg PO DAILY PRN (Reason: gout) RF: 0 losartan 50 mg Tablet 100 mg PO QAM Qty: 60 RF: 0 hydrochlorothiazide 25 mg Tablet 25 mg PO QAM Qty: 30 RF: 0 (DME) Oxygen Home Liters Per Minute 1 ea .Route HS Qty: 1 RF: 0 Discontinued carvedilol 12.5 mg tablet 12.5 mg PO BID RF: 0 No Action tadalafil 5 mg tablet 5 mg PO DAILY MDD 1 PRN (Reason: Sexual Activity) RF: 0 Discharge Orders: Discharge Order (Routine); Ordered 10/30/20 Ordered By: Ravi Bautista/Other Patient Handouts: High Blood Sugar (Hyperglycemia), Hypoglycemia (Low Blood Sugar), Managing Type 2 Diabetes, 5 Steps for Eating Healthier, A1C Admission Data Admit Date/Time: 10/27/20 18:56 Attending Provider: Ravi Curry Admit Provider: Derian Cortez Primary Care Provider: Jordi Silveira Other Providers: Derian Cortez ; Daniel Bernal ; Rj Oliver ; Henok Newberry ; Quinn Carver ; Luis Leon ; Shravan Hanson ; Ashlie Porter ; Isabelle Mata ; Vianney Ny ; Kaleb Mata
[2020-10-30] MEDS: ACETAMINOPHEN 325 MG TAB PO PRN (14:29)
== END 2020-10-30 16:00 | disposition home or self-care (01) | DRG 282 ==
LOC: ED 12:00 → 2S 18:56 → SUATTDRO 18:56 → 2S 19:50